=== PATIENT | female | born 1995 | race American Indian/Alaskan Native ===

== ENCOUNTER 2021-09-06 10:50 | Inpatient (IN) | payer OTHER ==
[2021-09-06] MEDS ORDERED: ACETAMINOPHEN 500 MG TAB PO STA (11:36)
[2021-09-06] MEDS ORDERED: SODIUM CHLORIDE 0.9% 1000 ML 1,000 ML IV ONE ×2 (11:36→15:51)
[2021-09-06 12:09] LABS: Hematocrit 37.1 % (30.3-42.9); Hemoglobin 12.2 gm/dl (10.1-14.3); Mean Corpuscular HGB Conc 33 % (30-34); Mean Corpuscular Volume 90 fl (79-97); Platelet Count 277 K/mm3 (140-440); Red Blood Count 4.14 M/mm3 (3.65-5.03); Red Cell Distribution Width 14.8 % (13.2-15.2)
[2021-09-06 12:23] LABS: Alanine Aminotransferase 37 units/L (7-56); Albumin 4.2 g/dL (3.9-5); Blood Urea Nitrogen 4 mg/dL (7-17); Calcium 9.5 mg/dL (8.4-10.2); Hemolysis Index 0
[2021-09-06 12:36] LABS: Bilirubin,Urine NEG (Negative); Blood,Urine LG (Negative); Color,Urine Amber (Yellow); Urobilinogen,Urine < 2.0 mg/dL (<2.0)
[2021-09-06 12:37] LABS: BUN/Creatinine Ratio 6
[2021-09-06 13:29] LABS: Anisocytosis 1+; Band Neutrophils # (Manual) 0.7 K/mm3; Basophils % (Manual) 0 % (0.0-1.8); Eosinophils % (Manual) 0 % (0.0-4.3); Large Platelets Few; Platelet Estimate Consistent w Auto; Total Cells Counted 100; Toxic Granulation 1+
--- NOTE | 2021-09-06 13:31 | Cat Scan Report ---
CT ABDOMEN AND PELVIS without CONTRAST HISTORY: lower abdominal pain 100ML 0F 300 OF OMNIPAQUE GIVEN COMPARISON: None TECHNIQUE: Routine abdominal and pelvic CT exam performed following intravenous contrast administrat ion.. All CT scans at this location are performed using CT dose reduction for ALARA by means of autom ated exposure control. FINDINGS: CT ABDOMEN: Lung Bases: No significant abnormality. Liver: No significant abnormality. Biliary: No significant abnormality. Spleen: No significant abnormality. Unenlarged. Pancreas: No significant abnormality. Adrenals: No significant abnormality. Kidneys: No significant abnormality. Lymphatics: No lymphadenopathy. Vasculature: No significant abnormality. Bowel/Peritoneum: No significant abnormality. No free air. No free fluid. CT PELVIC: : There is a large complex cystic structure in the left adnexal region, which appears to be partial ly tubular. This measures 12.6 x 9.9 cm in greatest axial dimension. There is resultant mass effect o n the uterus is rightward deviation of the uterus. Lymphatics: No lymphadenopathy. Osseous Structures: No aggressive appearing osseous lesions. Additional Findings: None IMPRESSION: 1. Large complex cystic structure in the left side of the pelvis appears to be at least partially tub ular in nature. This is probably a large hydrosalpinx/pyosalpinx. Complex left ovarian the lesion is possible but is felt to be less likely. Pelvic ultrasound might be helpful for further evaluation. Signer Name: Sean Parisi MD Signed: 09/06/2021 1:27 PM Workstation Name: [id number]
--- NOTE | 2021-09-06 15:13 | Emergency Department Report ---
ED General Adult HPI - General Chief complaint: Abdominal Pain Stated complaint: ABD PAIN Time Seen by Provider: 09/06/21 11:35 Source: patient Mode of arrival: Ambulatory Limitations: No Limitations - History of Present Illness Initial comments: 26-year-old -[place] female patient presents with complaints of lower abdominal pain x6 days. She states history of an ovarian cyst and is currently following with Dr. [facility]. She denies any vaginal bleeding, dysuria, hematuria, urinary frequency, dyspareunia, or fever. She does admit to chills and fatigue. No other past medical history per patient. She denies any known drug allergies. She rates her pain as a 6/10 in severity at current. Patient also denies any constipation or diarrhea, melena or hematochezia and admits to nausea without vomiting. Patient also states her menstrual cycle started yesterday Severity scale (0 -10): 5 - Related Data Home Medications Medication Instructions Recorded Confirmed Last Taken No Known Home Medications [No 09/06/21 09/06/21 Unknown Reported Home Medications] Allergies Allergy/AdvReac Type Severity Reaction Status Date / Time amoxicillin AdvReac Unknown Verified 09/06/21 11:04 ED Review of Systems ROS: Stated complaint: ABD PAIN Other details as noted in HPI Constitutional: chills, malaise, weakness. denies: diaphoresis, fever Respiratory: denies: cough, shortness of breath Cardiovascular: denies: chest pain Gastrointestinal: abdominal pain, nausea. denies: vomiting, diarrhea, constipation, hematemesis, melena, hematochezia Genitourinary: as per HPI Neurological: denies: headache Hematological/Lymphatic: denies: swollen glands ED Past Medical Hx - Medications Home Medications: Home Medications Medication Instructions Recorded Confirmed Last Taken Type No Known Home Medications [No 09/06/21 09/06/21 Unknown History Reported Home Medications] ED Physical Exam - General Limitations: No Limitations General appearance: alert, in no apparent distress - Head Head exam: Present: atraumatic, normocephalic - Eye Eye exam: Present: normal appearance. Absent: scleral icterus - Respiratory Respiratory exam: Present: normal lung sounds bilaterally. Absent: respiratory distress - Cardiovascular Cardiovascular Exam: Present: normal rhythm, tachycardia, normal heart sounds - GI/Abdominal GI/Abdominal exam: Present: soft, tenderness (Suprapubic tenderness, worse in the left lower abdomen), normal bowel sounds. Absent: distended, guarding, rebound, rigid - External exam: Present: normal external exam Speculum exam: Present: vaginal bleeding. Absent: erythema, vaginal discharge, cervical discharge Bi-manual exam: Absent: cervical motion tendernes - Back Exam Back exam: Present: full ROM. Absent: CVA tenderness (R), muscle spasm - Neurological Exam Neurological exam: Present: alert, oriented X3, normal gait ED Course Vital Signs 09/06/21 09/06/21 09/06/21 11:00 13:47 14:36 Temperature 100 F H 99.1 F Pulse Rate 125 H 102 H Respiratory 20 18 Rate Blood Pressure 126/77 Blood Pressure 135/83 116/71 [Left] O2 Sat by Pulse 100 100 Oximetry 09/06/21 09/06/21 09/06/21 15:27 15:28 17:43 Temperature 99.2 F 102.7 F H Pulse Rate 102 H 105 H Respiratory 20 18 Rate Blood Pressure Blood Pressure 119/79 118/73 [Left] O2 Sat by Pulse 100 100 99 Oximetry 09/06/21 09/06/21 09/06/21 19:21 19:57 20:39 Temperature 97.6 F Pulse Rate 92 H Respiratory 20 Rate Blood Pressure 114/74 101/48 107/68 Blood Pressure [Left] O2 Sat by Pulse 99 Oximetry 09/06/21 09/06/21 09/06/21 20:54 23:53 23:56 Temperature Pulse Rate Respiratory 20 Rate Blood Pressure Blood Pressure [Left] O2 Sat by Pulse 99 99 Oximetry 09/07/21 09/07/21 09/07/21 00:00 00:10 00:20 Temperature Pulse Rate Respiratory Rate Blood Pressure 155/79 155/79 155/79 Blood Pressure [Left] O2 Sat by Pulse 99 98 98 Oximetry 09/07/21 09/07/21 09/07/21 00:30 00:40 00:50 Temperature Pulse Rate Respiratory Rate Blood Pressure 155/79 155/79 155/79 Blood Pressure [Left] O2 Sat by Pulse 96 97 96 Oximetry ED Medical Decision Making - Lab Data Result diagrams: 09/07/21 08:50 09/07/21 08:50 - Radiology Data Radiology results: report reviewed CT ABDOMEN AND PELVIS without CONTRAST HISTORY: lower abdominal pain 100ML 0F 300 OF OMNIPAQUE GIVEN COMPARISON: None TECHNIQUE: Routine abdominal and pelvic CT exam performed following intravenous contrast administration.. All CT scans at this location are performed using CT dose reduction for ALARA by means of automated exposure control. FINDINGS: CT ABDOMEN: Lung Bases: No significant abnormality. Liver: No significant abnormality. Biliary: No significant abnormality. Spleen: No significant abnormality. Unenlarged. Pancreas: No significant abnormality. Adrenals: No significant abnormality. Kidneys: No significant abnormality. Lymphatics: No lymphadenopathy. Vasculature: No significant abnormality. Bowel/Peritoneum: No significant abnormality. No free air. No free fluid. CT PELVIC: : There is a large complex cystic structure in the left adnexal region, which appears to be partially tubular. This measures 12.6 x 9.9 cm in greatest axial dimension. There is resultant mass effect on the uterus is rightward deviation of the uterus. Lymphatics: No lymphadenopathy. Osseous Structures: No aggressive appearing osseous lesions. Additional Findings: None IMPRESSION: 1. Large complex cystic structure in the left side of the pelvis appears to be at least partially tubular in nature. This is probably a large hydrosalpinx/pyosalpinx. Complex left ovarian the lesion is possible but is felt to be less likely. Pelvic ultrasound might be helpful for further evaluation. Blood flow: Normal. Cyst or mass: A simple right adnexal cyst measures up to 2.8 cm. No other solid or cystic lesions. Left Ovary: The left ovary is not clearly visualized. A large hypoechoic structure containing generalized internal echoes is seen measuring 14.5 x 6.5 x 10.9 cm without internal vascularity. The finding correlates with the abnormality seen on the CT performed earlier today. Urinary Bladder: Normal. Free Fluid: None. Additional Findings: None. IMPRESSION: 1. Abnormal large left adnexal lesion as above is favored to represent hydrosalpinx versus pyosalpinx based on the findings of the CT performed earlier today. A left adnexal/ovarian neoplasm cannot be entirely excluded. AIRPLANE WOODWORKER consultation is recommended along with close clinical and imaging follow up. 2. Simple appearing nonspecific right adnexal cyst measuring up to 2.8 cm is most likely benign. No dedicated follow-up imaging is indicated at this time. 3. No other significant abnormality. - Medical Decision Making 26-year-old -[place] female patient presents with complaints of lower abdominal pain x6 days. She states history of an ovarian cyst and is currently following with Dr. [facility]. She denies any vaginal bleeding, dysuria, hematuria, urinary frequency, dyspareunia, or fever. She does admit to chills and fatigue. No other past medical history per patient. She denies any known drug allergies. She rates her pain as a 6/10 in severity at current. Patient also denies any constipation or diarrhea, melena or hematochezia and admits to nausea without vomiting. Suprapubic tenderness to palpation noted on exam worse in the left lower quadrant. CT abdomen shows fluid distention in the left tubo-ovarian area and recommends ultrasound. Ultrasound shows hydrosalpinx versus pyosalpinx and unable to rule out malignancy. White count is 11.8. Patient remains febrile and mildly tachycardic despite Tylenol and Toradol. She has received 2 L of n ormal saline. Discussed patient with Dr. Bryson who recommended Levaquin initially. After results of CT and ultrasound, Rocephin 1 g IV added along with doxycycline p.o. Discussed patient with Dr. Sifuentes who agrees with consultation with RF ENGINEER. Discussed patient with Dr. Bae, RF ENGINEER-recommends admission for observation and IV antibiotics. Patient is stable at this time and her pain is controlled. Critical care attestation.: If time is entered above; I have spent that time in minutes in the direct care of this critically ill patient, excluding procedure time. ED Disposition Clinical Impression: Sepsis, Pyosalpinx Disposition: 09 ADMITTED INPATIENT Is pt being admited?: Yes Condition: Stable
[2021-09-06] MEDS ORDERED: POTASSIUM CHLORIDE ER 20 MEQ TAB PO ONE (15:51)
--- NOTE | 2021-09-06 17:12 | Ultrasound Report ---
ULTRASOUND PELVIS INDICATION: Elbow pain. Abnormal CT of the abdomen and pelvis performed today demonstrating a probable left hydro nik-/pyosalpinx versus complex left adnexal lesion. TECHNIQUE: Transabdominal and Transvaginal. Duplex Color Doppler used: Yes. COMPARISON: CT abdomen and pelvis with contrast performed today. FINDINGS: Uterus: Present. Size: 8.7 x 4.8 x 5.1 cm. Endometrial complex: Normal measuring 0.9 cm. Mass lesions: None. Additional findings: None. Right Ovary: Size: 2.8 x 2.3 x 1.8 cm Blood flow: Normal. Cyst or mass: A simple right adnexal cyst measures up to 2.8 cm. No other solid or cystic lesions. Left Ovary: The left ovary is not clearly visualized. A large hypoechoic structure containing general ized internal echoes is seen measuring 14.5 x 6.5 x 10.9 cm without internal vascularity. The finding correlates with the abnormality seen on the CT performed earlier today. Urinary Bladder: Normal. Free Fluid: None. Additional Findings: None. IMPRESSION: 1. Abnormal large left adnexal lesion as above is favored to represent hydrosalpinx versus pyosalpinx based on the findings of the CT performed earlier today. A left adnexal/ovarian neoplasm cannot be e ntirely excluded. MANAGER PROCESS EXCELLENCE consultation is recommended along with close clinical and imaging follow up. 2. Simple appearing nonspecific right adnexal cyst measuring up to 2.8 cm is most likely benign. No d edicated follow-up imaging is indicated at this time. 3. No other significant abnormality. Signer Name: Ambrose Ruiz MD Signed: 09/06/2021 5:08 PM Workstation Name: [id number]
[2021-09-06] MEDS ORDERED: KETOROLAC 30 MG/1 ML INJ IV ONE (17:19)
[2021-09-06] MEDS ORDERED: ACETAMINOPHEN 325 MG TAB PO ONE (17:20)
[2021-09-06] MEDS ORDERED: cefTRIAXone/NS 1 GM/50 ML 1 GM/50 ML BAG IV ONE (17:46)
[2021-09-06] MEDS ORDERED: DOXYCYCLINE 100 MG CAP PO ONE (18:09)
[2021-09-06] MEDS ORDERED: NALOXONE 0.4 MG/1 ML INJ IV PRN (18:13)
[2021-09-06] MEDS ORDERED: MORPHINE 4 MG/1 ML INJ IV PRN (18:13)
[2021-09-06] MEDS: MORPHINE 2 MG/1 ML INJ IV PRN ×2 (20:27→23:53)
[2021-09-06] MEDS: metroNIDAZOLE/NS 500 MG/100 ML 500 MG/100 ML BAG IV SCH (21:41)
[2021-09-06] MEDS ORDERED: SODIUM CHLORIDE 0.9% 1000 ML 1,000 ML IV SCH (21:45)
[2021-09-06] MEDS: DOXYCYCLINE HYCLATE 100 MG in SODIUM CHLORIDE 0.9% 250ML 250 ML IV SCH (23:57)
[2021-09-07] MEDS ORDERED: ACETAMINOPHEN 500 MG TAB PO ONE (02:11)
--- NOTE | 2021-09-07 07:38 | History and Physical Report ---
History of Present Illness Date of examination: 09/07/21 Date of admission: 09/06/21 18:13 Chief complaint: fever, abdominal pain History of present illness: Pt is a 26 year old -British female nulligravida who presents with one week of decreased appetite, nausea, and abdominal pain. She did not report fever prior to presentation but was febrile to 102.7 during her evaluation in the Emergency Department. She had a CT abdomen/pelvis as well as a pelvic ultrasound which revealed a large complex cystic structure in adenexal region without internal echoes concerning for pyosalpinx vs hydrosalpinx. She has gynecologic care at [facility] with her last visit in Summer 2020. She reports a history of ovarian cysts and fibroids. 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 History: fibroids (per patient, but not identified on recent imaging ) Social history: no significant social history - Obstetrical History : 0 Medications and Allergies Allergies Allergy/AdvReac Type Severity Reaction Status Date / Time amoxicillin AdvReac Unknown Verified 09/06/21 11:04 Home Medications Medication Instructions Recorded Confirmed Last Taken Type No Known Home Medications [No 09/06/21 09/06/21 Unknown History Reported Home Medications] Active Meds: Active Medications Acetaminophen (Acetaminophen 325 Mg Tab) 650 mg PO Q4H PRN PRN Reason: Pain MILD(1-3)/Fever >100.5/GILES Doxycycline Hyclate 100 mg/ (Sodium Chloride) 250 mls @ 250 mls/hr IV Q12H AGUILAR; Protocol Last Admin: 09/06/21 23:57 Dose: 250 mls/hr Ceftriaxone Sodium (Rocephin/Ns 1 Gm/50 Ml) 1 gm in 50 mls @ 100 mls/hr IV Q24H AGUILAR; Protocol Metronidazole (Flagyl 500 Mg/100 Ml) 500 mg in 100 mls @ 100 mls/hr IV Q12H AGUILAR; Protocol Last Admin: 09/06/21 21:41 Dose: 100 mls/hr Sodium Chloride (Nacl 0.9% 1000 Ml) 1,000 mls @ 42 mls/hr IV DIRECT AGUILAR Last Admin: 09/06/21 21:39 Dose: 42 mls/hr Morphine Sulfate (Morphine 2 Mg/1 Ml Inj) 2 mg IV Q4H PRN PRN Reason: Pain, Moderate (4-6) Last Admin: 09/06/21 23:53 Dose: 2 mg Morphine Sulfate (Morphine 4 Mg/1 Ml Inj) 4 mg IV Q4H PRN PRN Reason: Pain , Severe (7-10) Naloxone HCl (Naloxone 0.4 Mg/1 Ml Inj) 0.1 mg IV Q2MIN PRN PRN Reason: Res Rate </= 8 or 02 SAT < 92% Ondansetron HCl (Ondansetron 4 Mg/2 Ml Inj) 4 mg IV Q8H PRN PRN Reason: Nausea And Vomiting Oxycodone/Acetaminophen (Oxycodone /Acetaminophen 5-325mg Tab) 1 tab PO Q6H PRN PRN Reason: Pain, Moderate (4-6) Sodium Chloride (Sodium Chloride 0.9% 10 Ml Flush Syringe) 10 ml IV BID AUGILAR Sodium Chloride (Sodium Chloride 0.9% 10 Ml Flush Syringe) 10 ml IV PRN PRN PRN Reason: LINE FLUSH Review of Systems All systems: negative Eyes: deferred Gastrointestinal: nausea, vomiting (x 2 episodes, yesterday ) - Vital Signs Vital signs: Vital Signs Temp Pulse Resp BP Pulse Ox 100 F H 125 H 20 135/83 100 09/06/21 11:00 09/06/21 11:00 09/06/21 11:00 09/06/21 11:00 09/06/21 11:00 Temp Pulse Resp BP Pulse Ox 99.3 F 101 H 18 91/49 98 09/07/21 05:00 09/07/21 05:00 09/07/21 05:00 09/07/21 05:00 09/07/21 05:00 - Physical Exam Breasts: Positive: deferred Abdomen: Positive: soft (mild ), distention, tenderness. Negative: guarding Extremities: Positive: normal Results Result Diagrams: 09/06/21 11:42 09/06/21 11:42 Abnormal lab results 09/06/21 09/06/21 09/06/21 Range/Units 11:42 11:42 11:42 WBC 11.8 H (4.5-11.0) K/mm3 Seg Neuts % (Manual) 76.0 H (40.0-70.0) % Lymphocytes % (Manual) 9.0 L (13.4-35.0) % Monocytes % (Manual) 9.0 H (0.0-7.3) % Seg Neutrophils # Man 9.0 H (1.8-7.7) K/mm3 Lymphocytes # (Manual) 1.1 L (1.2-5.4) K/mm3 Monocytes # (Manual) 1.1 H (0.0-0.8) K/mm3 Sodium 133 L (137-145) mmol/L Potassium 3.4 L (3.6-5.0) mmol/L Chloride 92.0 L (98-107) mmol/L BUN 4 L (7-17) mg/dL Glucose 131 H (65-100) mg/dL Lactic Acid 2.80 H* (0.7-2.0) mmol/L Total Protein 8.5 H (6.3-8.2) g/dL 09/06/21 Range/Units 16:38 WBC (4.5-11.0) K/mm3 Seg Neuts % (Manual) (40.0-70.0) % Lymphocytes % (Manual) (13.4-35.0) % Monocytes % (Manual) (0.0-7.3) % Seg Neutrophils # Man (1.8-7.7) K/mm3 Lymphocytes # (Manual) (1.2-5.4) K/mm3 Monocytes # (Manual) (0.0-0.8) K/mm3 Sodium (137-145) mmol/L Potassium (3.6-5.0) mmol/L Chloride (98-107) mmol/L BUN (7-17) mg/dL Glucose (65-100) mg/dL Lactic Acid 3.70 H* (0.7-2.0) mmol/L Total Protein (6.3-8.2) g/dL All other labs normal. Assessment and Plan A: Fever and complex left adnexal mass concerning for tubo-ovarian abscess Electrolyte abnormalities P: Admit to gynecologic service IV Ceftriaxone, Flagyl and Doxycycline Interventional Radiology consult for drainage- contact made with Dr Joe this morning (09/07/21) Closely monitor clinical status Repeat CBC, BMP Follow up blood cultures
--- NOTE | 2021-09-07 09:25 | Event Note ---
Date: 09/07/21 Discussed the plan of care with patient. Patient is currently awaiting on evaluation from IR for percutaneous drainage of TOA. Receiving IV antibiotics.
[2021-09-07 09:56] LABS: Basophils % (Auto) 0.1 % (0.0-1.8); Eosinophils % (Auto) 0.1 % (0.0-4.3); Hematocrit 35.1 % (30.3-42.9); Hemoglobin 11.1 gm/dl (10.1-14.3); Lymphocytes # (Auto) 0.8 K/mm3 (1.2-5.4); Lymphocytes % (Auto) 6.9 % (13.4-35.0); Mean Corpuscular HGB Conc 32 % (30-34); Mean Corpuscular Volume 90 fl (79-97); Monocytes # (Auto) 1.5 K/mm3 (0.0-0.8); Monocytes % (Auto) 12.6 % (0.0-7.3); Platelet Count 242 K/mm3 (140-440); Red Cell Distribution Width 14.9 % (13.2-15.2)
[2021-09-07 10:02] LABS: Blood Urea Nitrogen 3 mg/dL (7-17); Calcium 8.7 mg/dL (8.4-10.2); Hemolysis Index 1
[2021-09-07 10:03] LABS: BUN/Creatinine Ratio 4
[2021-09-07] MEDS: MORPHINE 2 MG/1 ML INJ IV PRN (10:36)
[2021-09-07] MEDS: metroNIDAZOLE/NS 500 MG/100 ML 500 MG/100 ML BAG IV SCH ×2 (10:37→23:12)
[2021-09-07] MEDS: D5W/LACTATED RINGERS 1,000 ML IV SCH ×2 (10:45→15:42)
[2021-09-07] MEDS: DOXYCYCLINE HYCLATE 100 MG in SODIUM CHLORIDE 0.9% 250ML 250 ML IV SCH (11:54)
--- NOTE | 2021-09-07 13:33 | Event Note ---
Date: 09/07/[address] Bae. We will plan on a percutaneous drainage of TOA tomorrow secondary to scheduling. CT scan reviewed and TOA is amenable to drainage.
[2021-09-07] MEDS: ACETAMINOPHEN 325 MG TAB PO PRN (15:28)
[2021-09-07] MEDS: cefTRIAXone/NS 1 GM/50 ML 1 GM/50 ML BAG IV SCH (15:35)
[2021-09-07] MEDS: oxyCODONE /ACETAMINOPHEN 5-325MG TAB PO PRN (18:41)
[2021-09-07] MEDS: ONDANSETRON 4 MG/2 ML INJ IV PRN (23:17)
[2021-09-08] MEDS: DOXYCYCLINE HYCLATE 100 MG in SODIUM CHLORIDE 0.9% 250ML 250 ML IV SCH ×2 (01:48→22:00)
[2021-09-08] MEDS: ACETAMINOPHEN 325 MG TAB PO PRN (08:00)
[2021-09-08] MEDS ORDERED: fentaNYL 100 MCG/2 ML INJ ONE (11:01)
[2021-09-08] MEDS ORDERED: MIDAZOLAM 2 MG/2 ML INJ ONE (11:02)
[2021-09-08] MEDS ORDERED: MIDAZOLAM 2 MG/2 ML INJ IV ONE (11:05)
[2021-09-08] MEDS ORDERED: fentaNYL 100 MCG/2 ML INJ IV ONE (12:05)
--- NOTE | 2021-09-08 12:17 | Consultation ---
History of Present Illness - Reason for Consult Consult date: 09/08/21 Tubo-ovarian abscess - History of Present Illness Patient with a history of a 1 week of worsening abdominal pain and fullness who on CT scan on admission was noted to have a large tubo-ovarian abscess. Past History Social history: no significant social history Medications and Allergies Allergies Allergy/AdvReac Type Severity Reaction Status Date / Time amoxicillin AdvReac Unknown Verified 09/06/21 11:04 Home Medications Medication Instructions Recorded Confirmed Last Taken Type No Known Home Medications [No 09/06/21 09/06/21 Unknown History Reported Home Medications] Active Meds: Active Medications Acetaminophen (Acetaminophen 325 Mg Tab) 650 mg PO Q4H PRN PRN Reason: Pain MILD(1-3)/Fever >100.5/GILES Last Admin: 09/08/21 08:00 Dose: 650 mg Doxycycline Hyclate 100 mg/ (Sodium Chloride) 250 mls @ 250 mls/hr IV Q12H AGUILAR; Protocol Last Admin: 09/08/21 01:48 Dose: 250 mls/hr Ceftriaxone Sodium (Rocephin/Ns 1 Gm/50 Ml) 1 gm in 50 mls @ 100 mls/hr IV Q24H AGUILAR; Protocol Last Admin: 09/07/21 15:35 Dose: 100 mls/hr Metronidazole (Flagyl 500 Mg/100 Ml) 500 mg in 100 mls @ 100 mls/hr IV Q12H AGUILAR; Protocol Last Admin: 09/07/21 23:12 Dose: 100 mls/hr Dextrose/Lactated Ringer's (D5lr) 1,000 mls @ 125 mls/hr IV DIRECT AGUILAR Last Admin: 09/07/21 15:42 Dose: 125 mls/hr Morphine Sulfate (Morphine 2 Mg/1 Ml Inj) 2 mg IV Q4H PRN PRN Reason: Pain, Moderate (4-6) Last Admin: 09/07/21 10:36 Dose: 2 mg Morphine Sulfate (Morphine 4 Mg/1 Ml Inj) 4 mg IV Q4H PRN PRN Reason: Pain , Severe (7-10) Naloxone HCl (Naloxone 0.4 Mg/1 Ml Inj) 0.1 mg IV Q2MIN PRN PRN Reason: Res Rate </= 8 or 02 SAT < 92% Ondansetron HCl (Ondansetron 4 Mg/2 Ml Inj) 4 mg IV Q8H PRN PRN Reason: Nausea And Vomiting Last Admin: 09/07/21 23:17 Dose: 4 mg Oxycodone/Acetaminophen (Oxycodone /Acetaminophen 5-325mg Tab) 1 tab PO Q6H PRN PRN Reason: Pain, Moderate (4-6) Last Admin: 09/07/21 18:41 Dose: 1 tab Sodium Chloride (Sodium Chloride 0.9% 10 Ml Flush Syringe) 10 ml IV BID AGUILAR Sodium Chloride (Sodium Chloride 0.9% 10 Ml Flush Syringe) 10 ml IV PRN PRN PRN Reason: LINE FLUSH Review of Systems All systems: negative Exam - Constitutional Vitals: Temp Pulse Resp BP Pulse Ox 101.0 F H 92 H 28 H 115/66 100 09/08/21 09:25 09/08/21 12:11 09/08/21 12:11 09/08/21 12:11 09/08/21 12:11 General appearance: Present: no acute distress - EENT Eyes: Present: EOM intact ENT: hearing intact - Neck Neck: Present: supple, normal ROM - Respiratory Respiratory effort: normal - Cardiovascular Rhythm: regular - Extremities Extremities: no ischemia - Abdominal General gastrointestinal: Present: soft, distended Female genitourinary: Present: deferred - Rectal Rectal Exam: deferred - Psychiatric Psychiatric: appropriate mood/affect, cooperative Results - Labs CBC & Chem 7: 09/07/21 08:50 09/07/21 08:50 - Imaging and Cardiology CT scan - abdomen: image reviewed CT scan - pelvis: image reviewed Assessment and Plan Patient will be brought to the CT suite today for planned placement of drainage catheter. Following placement of drainage catheter, the drainage catheter may be removed once her infection is under control and drainage has decreased. Patient may be discharged home with a drainage catheter in place.
--- NOTE | 2021-09-08 12:20 | Operative Report ---
Operative Report Operative Report: Exam: CT-guided placement of 8 Nauruan drainage catheter in tubo-ovarian abscess Clinical indication: Symptomatic tubo-ovarian abscess with sepsis Date: 09/08/2021 Procedure: Following an explanation of the risk, benefits and alternatives; written informed consent was obtained. The patient was brought to the CT suite and placed in supine position on the gantry. Initial senior wind energy consultant images of the abdomen were obtained and a large fluid collection that extended to the anterior abdominal wall is identified. This causes inferior displacement of the bladder. The patient's anterior abdominal wall was prepped and draped in the usual sterile fashion. 1% lidocaine was used for anesthesia. Under intermittent CT guidance, a 15 cm 18-gauge trocar needle was advanced to the central aspect of the fluid collection. There was prompt return of dark purulent fluid. A 0.035 guidewire was advanced and coiled within the fluid collection and CT images were obtained to document this. Following serial dilation over the guidewire, an 8 Nauruan drainage catheter was advanced over the guidewire and the guidewire removed. Appropriate positioning was confirmed with CT. A total of 700 mL of dark purulent fluid was aspirated. A sample was sent for laboratory analysis. The catheter was then securely fastened to the skin surface using 2-0 silk suture and placed to RICHARD bulb drainage. A sterile dressing was applied. The patient tolerated the procedure well. There were no immediate post procedure complications. Conscious sedation was performed under the guidance of radiologic nursing. Continuous cardiopulmonary monitoring was utilized. Impression: 1) CT-guided placement of 8 Nauruan drainage catheter in tubo-ovarian abscess with 700 mL of dark purulent fluid aspirated. Sample sent for laboratory analysis.
[2021-09-08] MEDS: D5W/LACTATED RINGERS 1,000 ML IV SCH (13:23)
[2021-09-08] MEDS: metroNIDAZOLE/NS 500 MG/100 ML 500 MG/100 ML BAG IV SCH (13:46)
[2021-09-08] MEDS: oxyCODONE /ACETAMINOPHEN 5-325MG TAB PO PRN ×2 (15:59→21:58)
[2021-09-08] MEDS: cefTRIAXone/NS 1 GM/50 ML 1 GM/50 ML BAG IV SCH (16:01)
--- NOTE | 2021-09-08 17:37 | Event Note ---
Date: 09/08/21 Pt sitting up in chair. States she feels much better. Pain is tolerable at this time, reports that Percocet was effective. RICHARD drain intact with serosanguinous drainage noted. Will continue to monitor.
[2021-09-09] MEDS: metroNIDAZOLE/NS 500 MG/100 ML 500 MG/100 ML BAG IV SCH ×2 (02:24→14:04)
[2021-09-09] MEDS: oxyCODONE /ACETAMINOPHEN 5-325MG TAB PO PRN ×3 (04:51→16:16)
--- NOTE | 2021-09-09 08:59 | Progress Note ---
Assessment and Plan - Patient Problems (1) Tubo-ovarian abscess Current Visit: Yes Status: Acute Plan to address problem: Patient is demonstrating clinical improvement Consider discharge home tomorrow Patient will need follow-up on Sunday for removal of RICHARD drain Subjective - Subjective Date of service: 09/09/21 Interval history: Patient is status post percutaneous drainage of a tubo-ovarian abscess with drainage of purulent material. The patient reports improvement of symptoms and she has been afebrile overnight. She denies any nausea vomiting. Her pain is better controlled. Patient reports: voiding normally, pain well controlled Objective - Vital Signs Latest vital signs: Vital Signs Temp Pulse Pulse Pulse Pulse Pulse Resp 09/09/21 07:02 98.1 F 84 20 09/09/21 05:38 98.4 F 90 18 09/09/21 04:51 18 09/09/21 00:53 98.0 F 94 H 16 09/08/21 22:58 18 09/08/21 22:00 80 18 09/08/21 21:58 18 09/08/21 21:55 09/08/21 21:13 98.0 F 99 H 16 09/08/21 16:20 99.6 F 134 H 20 09/08/21 15:59 20 09/08/21 13:27 22 09/08/21 12:59 99.6 F 110 H 20 09/08/21 12:40 99 H 09/08/21 12:27 100 H 09/08/21 12:11 92 H 09/08/21 12:05 96 H 09/08/21 11:59 98 H 09/08/21 11:54 99 H 09/08/21 11:49 96 H 09/08/21 11:44 99 H 09/08/21 11:42 30 H 09/08/21 11:35 95 H 09/08/21 09:25 101.0 F H 108 H Resp Resp Resp Resp BP BP BP 09/09/21 07:02 111/70 09/09/21 05:38 115/70 09/09/21 04:51 09/09/21 00:53 108/68 09/08/21 22:58 09/08/21 22:00 09/08/21 21:58 09/08/21 21:55 18 09/08/21 21:13 111/69 09/08/21 16:20 99/58 09/08/21 15:59 09/08/21 13:27 09/08/21 12:59 124/77 09/08/21 12:40 31 H 09/08/21 12:27 28 H 09/08/21 12:11 28 H 09/08/21 12:05 29 H 115/66 09/08/21 11:59 31 H 118/68 09/08/21 11:54 30 H 107/62 09/08/21 11:49 32 H 122/68 09/08/21 11:44 30 H 113/65 09/08/21 11:42 09/08/21 11:35 27 H 09/08/21 09:25 BP BP Pulse Ox Pulse Ox Pulse Ox Pulse Ox 09/09/21 07:02 97 09/09/21 05:38 98 09/09/21 04:51 09/09/21 00:53 98 09/08/21 22:58 09/08/21 22:00 99 09/08/21 21:58 09/08/21 21:55 09/08/21 21:13 99 09/08/21 16:20 09/08/21 15:59 09/08/21 13:27 09/08/21 12:59 98 09/08/21 12:40 122/71 99 97 09/08/21 12:27 121/71 100 99 09/08/21 12:11 115/66 100 09/08/21 12:05 100 09/08/21 11:59 100 09/08/21 11:54 100 09/08/21 11:49 99 09/08/21 11:44 99 09/08/21 11:42 09/08/21 11:35 121/77 98 09/08/21 09:25 96 Intake and Output 09/08/21 09/09/21 09/09/21 22:59 06:59 14:59 Intake Total 880 480 Output Total 80 Balance 800 480 Intake: Oral 880 Intake, Free Water 480 Output: Drainage 80 Abdomen 80 Other: Total, Intake Amount 360 Total, Output Amount 20 Voiding Method Toilet # Voids Void 1 1 - Exam Abdomen: Present: normal appearance, soft
[2021-09-09] MEDS: DOXYCYCLINE HYCLATE 100 MG in SODIUM CHLORIDE 0.9% 250ML 250 ML IV SCH ×2 (09:44→23:18)
--- NOTE | 2021-09-09 11:08 | Cat Scan Report ---
PLEASE SEE OPERATIVE REPORT ON 09/08/21 @1217 MTDD
[2021-09-09] MEDS: ONDANSETRON 4 MG/2 ML INJ IV PRN (16:17)
[2021-09-09] MEDS: cefTRIAXone/NS 1 GM/50 ML 1 GM/50 ML BAG IV SCH (18:25)
[2021-09-10] MEDS: metroNIDAZOLE/NS 500 MG/100 ML 500 MG/100 ML BAG IV SCH ×2 (03:14→14:54)
[2021-09-10] MEDS: ONDANSETRON 4 MG/2 ML INJ IV PRN ×2 (03:14→11:10)
[2021-09-10] MEDS: oxyCODONE /ACETAMINOPHEN 5-325MG TAB PO PRN ×2 (11:11→21:57)
[2021-09-10] MEDS: D5W/LACTATED RINGERS 1,000 ML IV SCH (11:14)
[2021-09-10] MEDS: DOXYCYCLINE HYCLATE 100 MG in SODIUM CHLORIDE 0.9% 250ML 250 ML IV SCH (12:30)
--- NOTE | 2021-09-10 17:12 | Progress Note ---
Assessment and Plan Postop day 2 status post percutaneous drainage of the ovarian abscess. Patient was improving on yesterday, however she seems to be doing somewhat worse today with the new development of vomiting and diarrhea. RICHARD drain shows only minimal output. We will recheck CBC for change in blood work. In addition, patient's temperature tends to be trending upward, as well as her heart rate. patient's IV was restarted by nursing staff. We will also collect urinalysis to check for new onset infection. Subjective - Subjective Date of service: 09/10/21 Principal diagnosis: Tubo-ovarian abscess, status post percutaneous drainage of same Interval history: Patient reports that she began vomiting last night and has continued to do so intermittently throughout the day regardless of her intake. Patient reports vomiting only water as well as food products. Patient is concerned about continuing to eat as she is concerned about continuing to vomit. She is also had several episodes of diarrhea. The vomiting seems to be concurrent with urinating and or defecating. Patient reports: appetite normal, voiding normally, nauseated, other (Vomiting and diarrhea) Objective - Vital Signs Latest vital signs: Vital Signs Temp Pulse Resp BP Pulse Ox 09/10/21 16:30 98.2 F 92 H 20 116/75 100 09/10/21 11:11 20 09/10/21 08:30 20 98 09/10/21 04:24 99.8 F H 108 H 20 107/62 98 09/09/21 23:29 98.6 F 100 H 20 116/72 98 09/09/21 19:47 98.6 F 98 H 18 114/70 97 09/09/21 19:30 99 Intake and Output 09/10/21 09/10/21 09/10/21 06:59 14:59 22:59 Intake Total 350 Output Total 405 4 Balance -55 -4 Intake: IV 350 Doxycycline Hyclate 100 250 mg In NaCl 0.9% 250Ml 250 ml @ 250 mls/hr IV Q12H AGUILAR Rx#:[id number] FLAGYL 500 MG/100 ML 500 100 mg In 100 ml @ 100 mls/hr IV Q12H AGUILAR Rx#: [id number] Output: Drainage 5 2 Abdomen 5 2 Emesis 400 2 Other: Total, Output Amount 405 1 Voiding Method Toilet # Voids Void 1 1 # Bowel Movements 1 1 - Exam Breasts: Present: deferred Cardiovascular: Present: Other (Mildly tachycardic) Lungs: Present: Clear to auscultation Abdomen: Present: normal appearance, soft, normal bowel sounds Extremities: Present: normal
[2021-09-10 17:24] LABS: Hematocrit 31.9 % (30.3-42.9); Hemoglobin 10.5 gm/dl (10.1-14.3); Mean Corpuscular HGB Conc 33 % (30-34); Mean Corpuscular Volume 89 fl (79-97); Platelet Count 358 K/mm3 (140-440); Red Cell Distribution Width 15.6 % (13.2-15.2)
[2021-09-10 17:31] LABS: Basophils % (Auto) 0.1 % (0.0-1.8); Eosinophils % (Auto) 0.3 % (0.0-4.3); Lymphocytes % (Auto) 9.4 % (13.4-35.0); Monocytes # (Auto) 1.3 K/mm3 (0.0-0.8); Monocytes % (Auto) 12.2 % (0.0-7.3)
[2021-09-10] MEDS: cefTRIAXone/NS 1 GM/50 ML 1 GM/50 ML BAG IV SCH (18:20)
[2021-09-10 20:20] LABS: Bilirubin,Urine NEG (Negative); Blood,Urine SM (Negative); Color,Urine Yellow (Yellow); Mucus,Urine FEW /HPF; Urobilinogen,Urine < 2.0 mg/dL (<2.0); WBC,Urine < 1.0 /HPF (0.0-6.0)
[2021-09-11] MEDS: DOXYCYCLINE HYCLATE 100 MG in SODIUM CHLORIDE 0.9% 250ML 250 ML IV SCH ×2 (00:29→13:03)
[2021-09-11] MEDS: metroNIDAZOLE/NS 500 MG/100 ML 500 MG/100 ML BAG IV SCH ×2 (02:44→14:13)
[2021-09-11] MEDS: oxyCODONE /ACETAMINOPHEN 5-325MG TAB PO PRN ×3 (09:12→23:27)
[2021-09-11] MEDS: ONDANSETRON 4 MG/2 ML INJ IV PRN ×2 (15:28→23:27)
[2021-09-11] MEDS: MORPHINE 2 MG/1 ML INJ IV PRN (16:15)
[2021-09-11] MEDS: cefTRIAXone/NS 1 GM/50 ML 1 GM/50 ML BAG IV SCH (18:30)
--- NOTE | 2021-09-11 23:49 | Progress Note ---
Subjective - Subjective Date of service: 09/11/21 Principal diagnosis: Tubo-ovarian abscess, status post percutaneous drainage of same Interval history: Patient reports that she began vomiting last night and has continued to do so intermittently throughout the day regardless of her intake. Patient reports vomiting only water as well as food products. Patient is concerned about continuing to eat as she is concerned about continuing to vomit. She is also had several episodes of diarrhea. The vomiting seems to be concurrent with urinating and or defecating. Patient reports: appetite normal, voiding normally, pain well controlled, ambul ating normally, nauseated, other (patient continues to have episodes of vomiting) Objective - Vital Signs Latest vital signs: Vital Signs Temp Pulse Resp BP BP Pulse Ox 09/11/21 23:27 12 09/11/21 20:40 98 09/11/21 20:37 99.1 F 81 20 133/74 97 09/11/21 16:09 98.9 F 82 18 127/83 98 09/11/21 12:10 98.0 F 98 H 18 123/66 96 09/11/21 08:10 95 09/11/21 07:31 99.0 F 98 H 18 104/72 95 09/11/21 04:35 98.2 F 98 H 20 101/53 99 Intake and Output 09/11/21 09/11/21 09/12/21 14:59 22:59 06:59 Intake Total 820 360 Balance 820 360 Intake: Oral 240 Intake, Free Water 580 360 Other: Total, Intake Amount 240 # Voids Void 1 1 - Exam Breasts: Present: deferred Lungs: Present: Clear to auscultation, Normal air movement
--- NOTE | 2021-09-12 08:16 | Progress Note ---
Assessment and Plan A: HD #6 admitted for tuboovarian abscess s/p percutaneous drainage on 09/08/21; previously on ceftriaxone, doxycycline and metronidazole but noted to have nausea vomiting and diarrhea with metronidazole P: Metronidazole and Doxcycline discontinued. Trial of cerftriaxone per abscess culture sensitivities. Monitor clinical status. Consider GI consult if nausea/vomiting/diarrhea return. Consider removal of Richard drain. Closely monitor clinical status. Subjective - Subjective Date of service: 09/12/21 Principal diagnosis: Tubo-ovarian abscess, status post percutaneous drainage of same Interval history: Overnight, since her antibiotics were discontinued, pt has felt well and has had no episodes of nausea or vomiting. She and her nurse yesterday Corazon suspect that the Metronidazole may be the medication causing her nausea and vomiting. She is able to void and ambulate. She has minimal pain. Minimal output from her RICHARD drain. Patient reports: appetite normal, voiding normally, pain well controlled, ambulating normally Objective - Vital Signs Latest vital signs: Vital Signs Temp Pulse Resp BP BP Pulse Ox 09/12/21 04:44 98.3 F 101 H 20 138/56 100 09/12/21 00:19 98.8 F 83 18 127/69 95 09/11/21 23:27 12 09/11/21 20:40 98 09/11/21 20:37 99.1 F 81 20 133/74 97 09/11/21 16:09 98.9 F 82 18 127/83 98 09/11/21 12:10 98.0 F 98 H 18 123/66 96 09/11/21 08:10 95 Intake and Output 09/11/21 09/12/21 09/12/21 22:59 06:59 14:59 Intake Total 360 120 Output Total 0 Balance 360 120 Intake: Oral 120 Intake, Free Water 360 Output: Drainage 0 Abdomen 0 Other: Total, Intake Amount 120 Total, Output Amount 0 # Voids Void 1 1 - Exam Breasts: Present: deferred Abdomen: Present: soft, other (RICHARD drain in place, bulb empty at this time ). Absent: distention Extremities: Present: normal
[2021-09-12 08:30] LABS: Basophils % (Auto) 0.2 % (0.0-1.8); Eosinophils % (Auto) 0.5 % (0.0-4.3); Hematocrit 33.9 % (30.3-42.9); Hemoglobin 11.2 gm/dl (10.1-14.3); Lymphocytes # (Auto) 0.9 K/mm3 (1.2-5.4); Mean Corpuscular HGB Conc 33 % (30-34); Mean Corpuscular Volume 88 fl (79-97); Monocytes % (Auto) 11.7 % (0.0-7.3); Platelet Count 418 K/mm3 (140-440); Red Blood Count 3.85 M/mm3 (3.65-5.03); Red Cell Distribution Width 15.5 % (13.2-15.2)
[2021-09-12 08:48] LABS: Blood Urea Nitrogen 3 mg/dL (7-17); Calcium 7.8 mg/dL (8.4-10.2); Hemolysis Index 6
[2021-09-12 09:13] LABS: BUN/Creatinine Ratio 6
[2021-09-12] MEDS ORDERED: POTASSIUM CHLORIDE ER 20 MEQ TAB PO SCH (10:00)
--- NOTE | 2021-09-12 10:11 | Gastroenterology Consultation ---
History of Present Illness - Reason for Consult Consult date: 09/12/21 n/v, diarrhea Requesting physician: CATHERINE HOWELL - History of Present Illness The patient is a 26 yo aaf who presented with 1 week of pelvic pain, found to have tubo-ovarian abscess s/p percutaneous drainage. During hospitalization, she developed sx's of n/v/diarrhea while on flagyl, dicyclomine and rocephin. flagyl and dicyclomine has since been discontinued and now on rocephin based on cx results. she reports improvement in her n/v/diarrhea today. no bm's today. tolerated po this morning without n/v. Past History Past Medical History: No medical history Past Surgical History: Other (percutaneous drainage of tuboovarian abscess) Social history: no significant social history Medications and Allergies Allergies Allergy/AdvReac Type Severity Reaction Status Date / Time amoxicillin AdvReac Unknown Verified 09/06/21 11:04 Home Medications Medication Instructions Recorded Confirmed Last Taken Type Doxycycline Hyclate 100 mg PO BID #14 09/09/21 Unknown Rx Ibuprofen [Motrin] 800 mg PO Q8HR PRN #30 tablet 09/09/21 Unknown Rx oxyCODONE /ACETAMINOPHEN [Percocet 1 tab PO Q6HR PRN #20 tablet 09/09/21 Unkno wn Rx 5/325] Active Meds: Active Medications Acetaminophen (Acetaminophen 325 Mg Tab) 650 mg PO Q4H PRN PRN Reason: Pain MILD(1-3)/Fever >100.5/GILES Last Admin: 09/08/21 08:00 Dose: 650 mg Dextrose/Lactated Ringer's (D5lr) 1,000 mls @ 125 mls/hr IV DIRECT AGUILAR Last Admin: 09/10/21 11:14 Dose: 125 mls/hr Ceftriaxone Sodium (Rocephin/Ns 1 Gm/50 Ml) 1 gm in 50 mls @ 100 mls/hr IV Q24H AGUILAR; Protocol Morphine Sulfate (Morphine 2 Mg/1 Ml Inj) 2 mg IV Q4H PRN PRN Reason: Pain, Moderate (4-6) Last Admin: 09/11/21 16:15 Dose: 2 mg Morphine Sulfate (Morphine 4 Mg/1 Ml Inj) 4 mg IV Q4H PRN PRN Reason: Pain , Severe (7-10) Last Admin: 09/08/21 13:27 Dose: 4 mg Naloxone HCl (Naloxone 0.4 Mg/1 Ml Inj) 0.1 mg IV Q2MIN PRN PRN Reason: Res Rate </= 8 or 02 SAT < 92% Ondansetron HCl (Ondansetron 4 Mg/2 Ml Inj) 4 mg IV Q8H PRN PRN Reason: Nausea And Vomiting Last Admin: 09/11/21 23:27 Dose: 4 mg Oxycodone/Acetaminophen (Oxycodone /Acetaminophen 5-325mg Tab) 2 tab PO Q6H PRN PRN Reason: Pain, Moderate (4-6) Last Admin: 09/11/21 23:27 Dose: 2 tab Potassium Chloride (Potassium Chloride Er 20 Meq Tab) 40 meq PO ONCE@1000 AGUILAR Stop: 09/12/21 14:00 Sodium Chloride (Sodium Chloride 0.9% 10 Ml Flush Syringe) 10 ml IV BID [facility] Last Admin: 09/08/21 22:01 Dose: 10 ml Sodium Chloride (Sodium Chloride 0.9% 10 Ml Flush Syringe) 10 ml IV PRN PRN PRN Reason: LINE FLUSH Reviewed/updated patient's home and current medications. Review of Systems - Review of Systems All systems: negative (per HPI) Exam - Constitutional Vital Signs: Temp Pulse Resp BP Pulse Ox 98.7 F 79 20 144/91 96 09/12/21 08:05 09/12/21 08:05 09/12/21 08:05 09/12/21 08:05 09/12/21 08:05 General appearance: no acute distress - EENT Eyes: PERRL, EOM intact - Respiratory Respiratory effort: normal Respiratory: bilateral: CTA - Cardiovascular Rhythm: regular Heart Sounds: Present: S1 & S2 - Gastrointestinal General gastrointestinal: Present: soft, non-distended - Neurologic Neurological: alert and oriented x3 - Psychiatric Psychiatric: appropriate mood/affect - Labs CBC & Chem 7: 09/12/21 08:19 09/12/21 08:19 Lab Results: Laboratory Results - last 24 hr 09/12/21 09/12/21 08:19 08:19 WBC 8.8 RBC 3.85 Hgb 11.2 Hct 33.9 MCV 88 MCH 29 MCHC 33 RDW 15.5 H Plt Count 418 Lymph % (Auto) 10.0 L [place] % (Auto) 11.7 H Eos % (Auto) 0.5 Baso % (Auto) 0.2 Lymph # (Auto) 0.9 L [place] # (Auto) 1.0 H Eos # (Auto) 0.0 Baso # (Auto) 0.0 Seg Neutrophils % 77.6 H Seg Neutrophils # 6.8 Sodium 138 Potassium 2.9 L* Chloride 96.8 L Carbon Dioxide 27 Anion Gap 17 BUN 3 L Creatinine 0.5 L Estimated GFR > 60 BUN/Creatinine Ratio 6 Glucose 101 H Calcium 7.8 L Assessment and Plan 1. Nausea/vomiting - resolved, suspect due to abx (flagyl). tolerated po this morning. cont diet as tolerated and supportive care per primary 2. Diarrhea - resolved as well, no bm's today -suspect abx related. if sx's remain improved, no further inpatient gi work-up needed. will sign off, please call as needed or with questions.
[2021-09-12] MEDS: cefTRIAXone/NS 1 GM/50 ML 1 GM/50 ML BAG IV SCH (10:15)
--- NOTE | 2021-09-12 13:39 | Consultation ---
History of Present Illness - Reason for Consult Consult date: 09/12/21 TOA s/p drainage Requesting physician: CATHERINE OHWELL - History of Present Illness The patient is a 26-year-old female with no significant medical history was admitted with nausea, vomiting, abdominal pain in association with fever. CT abdomen pelvis revealed a large complex cystic structure concerning for pyosalpinx versus hydrosalpinx. She was started on empiric antibiotics, interventional radiology performed a drain placement, about 700 cc of dark purulent fluid was aspirated. Fevers have resolved. Had mild leukocytosis which is also improved. More recently, patient started having nausea and vomiting suspected due to antibiotics. She was getting ceftriaxone, Flagyl, doxycycline. Patient thinks it was more related to Flagyl. That has been stopped and she is feeling better today. Still having some abdominal pain but overall she feels 80% better. Sexually active, in a monogamous relationship. Review of Systems: General: no fevers,chills or rigors HEENT: no new visual disturbance Respiratory: No cough, sputum, hemoptysis or shortness of breath Cardiovascular: No chest pain, syncope Gastrointestinal: Nausea, vomiting Genitourinary: No dysuria or hematuria Musculoskeletal: No new or worsening neck pain or back pain Neurologic: No headaches, seizures Hematologic: No easy bruising or bleeding Endocrine: No night sweats or acute weight loss Skin: negative for rash, jaundice Psychiatric: No suicidal or homicidal ideation Past History Past Medical History: No medical history Past Surgical History: Other (percutaneous drainage of tuboovarian abscess) Social history: no significant social history Medications and Allergies Allergies Allergy/AdvReac Type Severity Reaction Status Date / Time amoxicillin AdvReac Unknown Verified 09/06/21 11:04 Home Medications Medication Instructions Recorded Confirmed Last Taken Type Doxycycline Hyclate 100 mg PO BID #14 09/09/21 Unknown Rx Ibuprofen [Motrin] 800 mg PO Q8HR PRN #30 tablet 09/09/21 Unknown Rx oxyCODONE /ACETAMINOPHEN [Percocet 1 tab PO Q6HR PRN #20 tablet 09/09/21 Unknown Rx 5/325] Active Meds: Active Medications Acetaminophen (Acetaminophen 325 Mg Tab) 650 mg PO Q4H PRN PRN Reason: Pain MILD(1-3)/Fever >100.5/GILES Last Admin: 09/08/21 08:00 Dose: 650 mg Dextrose/Lactated Ringer's (D5lr) 1,000 mls @ 125 mls/hr IV DIRECT AGUILAR Last Admin: 09/10/21 11:14 Dose: 125 mls/hr Ceftriaxone Sodium (Rocephin/Ns 1 Gm/50 Ml) 1 gm in 50 mls @ 100 mls/hr IV Q24H AGUILAR; Protocol Last Admin: 09/12/21 10:15 Dose: 100 mls/hr Morphine Sulfate (Morphine 2 Mg/1 Ml Inj) 2 mg IV Q4H PRN PRN Reason: Pain, Moderate (4-6) Last Admin: 09/11/21 16:15 Dose: 2 mg Morphine Sulfate (Morphine 4 Mg/1 Ml Inj) 4 mg IV Q4H PRN PRN Reason: Pain , Severe (7-10) Last Admin: 09/08/21 13:27 Dose: 4 mg Naloxone HCl (Naloxone 0.4 Mg/1 Ml Inj) 0.1 mg IV Q2MIN PRN PRN Reason: Res Rate </= 8 or 02 SAT < 92% Ondansetron HCl (Ondansetron 4 Mg/2 Ml Inj) 4 mg IV Q8H PRN PRN Reason: Nausea And Vomiting Last Admin: 09/11/21 23:27 Dose: 4 mg Oxycodone/Acetaminophen (Oxycodone /Acetaminophen 5-325mg Tab) 2 tab PO Q6H PRN PRN Reason: Pain, Moderate (4-6) Last Admin: 09/11/21 23:27 Dose: 2 tab Potassium Chloride (Potassium Chloride Er 20 Meq Tab) 40 meq PO ONCE@1000 AGUILAR Stop: 09/12/21 14:00 Last Admin: 09/12/21 10:15 Dose: 40 meq Sodium Chloride (Sodium Chloride 0.9% 10 Ml Flush Syringe) 10 ml IV BID [facility] Last Admin: 09/08/21 22:01 Dose: 10 ml Sodium Chloride (Sodium Chloride 0.9% 10 Ml Flush Syringe) 10 ml IV PRN PRN PRN Reason: LINE FLUSH Physical Examination - Physical Exam Narrative exam: Physical Exam: Constitutional: Alert, cooperative. No acute distress Head, Ears, Nose: Normocephalic, atraumatic. External ears, nose normal Eyes: Conjunctivae/corneas clear. No icterus. No ptosis. Neck: Supple, no meningeal signs Cardiovascular: S1, S2 + Respiratory: Good air entry, clear to auscultation bilaterally GI: Soft, mild tenderness +; bowel sounds normal. No peritoneal signs. Drain present Musculoskeletal: No pedal edema, no cyanosis. Skin: No rash or abscess Hem/Lymphatic: No palpable cervical or supraclavicular nodes. No lymphangitis Psych: Mood ok. Affect normal Neurological: Awake, alert, oriented. No gross abnormality - Constitutional Vitals: Vital Signs Temp Pulse Resp BP Pulse Ox 99.1 F 81 20 142/91 99 09/12/21 12:10 09/12/21 12:10 09/12/21 12:10 09/12/21 12:10 09/12/21 12:10 Temperature -Last 24 Hours Temperature 99.1 F Temperature 98.7 F Temperature 98.3 F Temperature 98.8 F Temperature 99.1 F Temperature 98.9 F Results - Labs CBC & Chem 7: 09/12/21 08:19 09/12/21 08:19 Labs: Abnormal lab results 09/12/21 09/12/21 Range/Units 08:19 08:19 RDW 15.5 H (13.2-15.2) % Lymph % (Auto) 10.0 L (13.4-35.0) % [place] % (Auto) 11.7 H (0.0-7.3) % Lymph # (Auto) 0.9 L (1.2-5.4) K/mm3 [place] # (Auto) 1.0 H (0.0-0.8) K/mm3 Seg Neutrophils % 77.6 H (40.0-70.0) % Potassium 2.9 L* (3.6-5.0) mmol/L Chloride 96.8 L (98-107) mmol/L BUN 3 L (7-17) mg/dL Creatinine 0.5 L (0.6-1.2) mg/dL Glucose 101 H (65-100) mg/dL Calcium 7.8 L (8.4-10.2) mg/dL - Imaging and Cardiology CT scan - pelvis: report reviewed, image reviewed (complex cystic mass / TOA) Assessment and Plan Cultures: 09/06/2021 blood culture: No growth 09/08/2021 surgical drainage culture: E. coli 09/06/2021 cervical wet prep: Negative COVID-19 PCR: Negative 09/06/2021 GC NAAT: Negative A/P: 26/F with: #Sepsis, secondary to tubo-ovarian abscess: Status post IR drainage. #Nausea, vomiting: Likely antibiotic related #Amoxicillin allergy Recs: -Given improvement in nausea, vomiting after stopping Flagyl, continue IV ceftriaxone 1 gm daily alone -Upon discharge, switch to oral levofloxacin 500 mg daily for 10 days -Drain management per [facility]ING COVERER/IR Ted Loera MD, [facility] O: [phone] F: [phone]
[2021-09-12] MEDS: oxyCODONE /ACETAMINOPHEN 5-325MG TAB PO PRN ×2 (15:28→22:30)
[2021-09-13] MEDS: oxyCODONE /ACETAMINOPHEN 5-325MG TAB PO PRN (08:10)
--- NOTE | 2021-09-13 08:40 | Progress Note ---
Assessment and Plan A: HD #7 admitted for tuboovarian abscess s/p percutaneous drainage on 09/08/21; previously on ceftriaxone, doxycycline and metronidazole but noted to have nausea vomiting and diarrhea with metronidazole. Afebrile now and vomiting resolved with cessation of metranidazole P: Recheck BMP to ensure potassium is normalized. Discharge today with follow up in 1 wk Subjective - Subjective Date of service: 09/13/21 Principal diagnosis: Tubo-ovarian abscess, status post percutaneous drainage of same Interval history: No emesis yesterday after Flagyl discontinued. s/p ID and GI consults. Tolerating regular diet. Afebrile. Patient reports: appetite normal, voiding normally, pain well controlled, ambulating normally Objective - Vital Signs Latest vital signs: Vital Signs Temp Pulse Resp BP BP Pulse Ox 09/13/21 07:46 98.5 F 77 18 130/82 96 09/13/21 07:22 16 98 09/13/21 04:21 98.1 F 74 18 125/83 95 09/12/21 23:34 98.5 F 84 20 118/66 94 09/12/21 20:01 94 09/12/21 19:56 98.3 F 96 H 20 142/85 97 09/12/21 19:45 97 09/12/21 16:06 98.9 F 80 20 129/79 99 09/12/21 12:10 99.1 F 81 20 142/91 99 Intake and Output 09/12/21 09/13/21 09/13/21 22:59 06:59 14:59 Intake Total 600 120 Output Total 80 5 Balance 520 115 Intake: Oral 600 120 Output: Drainage 80 5 Abdomen 80 5 Other: Total, Intake Amount 240 120 Total, Output Amount 40 5 Voiding Method Toilet Toilet # Voids Void 1 1 - Exam Breasts: Present: deferred Abdomen: Present: soft. Absent: distention Extremities: Present: normal - Labs Labs: Abnormal lab results 09/12/21 Range/Units 08:19 Potassium 2.9 L* (3.6-5.0) mmol/L Chloride 96.8 L (98-107) mmol/L BUN 3 L (7-17) mg/dL Creatinine 0.5 L (0.6-1.2) mg/dL Glucose 101 H (65-100) mg/dL Calcium 7.8 L (8.4-10.2) mg/dL
--- NOTE | 2021-09-13 08:41 | Discharge Summary ---
Providers - Providers Date of Admission: 09/07/21 14:10 Date of discharge: 09/13/21 Attending physician: CATHERINE HOWELL 09/07/21 07:00 Consult to Interventional Radiology [CONS] Routine Consulting Provider: ROBERTO PICHARDO Reason For Exam: [address] consult to:: Radiology Notified:: [id number] 09/12/21 07:33 Consult to Physician [CONS] Routine Comment: Consulting Provider: TAMI LAW Physician Instructions: Reason For Exam: Tuboovarian abcess s/p drainage 09/12/21 07:35 Consult to Physician [CONS] Routine Comment: Consulting Provider: ROBERTO LIM Physician Instructions: Reason For Exam: admitted for TOA s/p drainage; new onset N/V/D 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 She developed nausea and vomiting two days after her procedure, thought to be secondary to metronidazle. On HD #7 she met discharge criteria. She will follow up in office in 1 wk. Condition at discharge: Stable Disposition: 01 HOME / SELF CARE / HOMELESS - Discharge Diagnoses (1) Tubo-ovarian abscess Status: Acute Plan - Discharge Medications Prescriptions: RX: Doxycycline Hyclate 100 mg PO BID #14 levoFLOXacin [Levaquin TAB] 500 mg PO QDAY #10 tablet Ibuprofen [Motrin] 800 mg PO Q8HR PRN #30 tablet PRN Reason: Pain , Severe (7-10) oxyCODONE /ACETAMINOPHEN [Percocet 5/325] 1 tab PO Q6HR PRN #20 tablet PRN Reason: Pain - Provider Discharge Summary Activity: no sex for 6 weeks, no heavy lifting 4 weeks, no strenuous exercise Diet: routine Instructions: routine Additional instructions: [] Smoking cessation referral if applicable(refer to patient education folder for contact #) [] Refer to [facility] Booklet Call your doctor immediately for: * Fever > 100.5 * Heavy vaginal bleeding ( >1 pad per hour) * Severe persistent headache * Shortness of breath * Reddened, hot, painful area to leg or breast * Drainage or odor from incision. * Keep incision clean and dry at all times and follow doctor's instructions regarding bathing/showering - Follow up plan Follow up: PRIMARY CARE, [Primary Care Provider] - 3-5 Days CATHERINE HOWELL MD [Staff Physician] - 7 Days Forms: Work/School Excuse Out Patient, Work/School Release Form
[2021-09-13] MEDS: cefTRIAXone/NS 1 GM/50 ML 1 GM/50 ML BAG IV SCH ×2 (09:24→09:42)
[2021-09-13 09:48] LABS: Blood Urea Nitrogen 2 mg/dL (7-17); Calcium 8.1 mg/dL (8.4-10.2); Hemolysis Index 6
[2021-09-13 09:54] LABS: BUN/Creatinine Ratio 5
[2021-09-13 12:34] VITALS: BP 125/85
== END 2021-09-13 11:43 | disposition home or self-care (01) | DRG 872 ==
LOC: ED 10:50 → OB 18:13 → OBSVTOIN 09-07 14:10
PROVIDERS: ADMIT Obstetrics & Gynecology; ATTEND Obstetrics & Gynecology
PROC: 0W9J30Z Drainage of Pelvic Cavity with Drainage Device, Percutaneous Approach (ICD-10-PCS; principal; 2021-09-08)
DX: A41.9 Sepsis, unspecified organism (principal); N83.202 Unspecified ovarian cyst, left side; R10.2 Pelvic and perineal pain; Z88.8 Allergy status to other drugs, medicaments and biological substances; N70.93 Salpingitis and oophoritis, unspecified
CPT/HCPCS: 10160; 36415; 74177; 76830; 76856; 77012; 80048; 80053; 81001; 82140; 84703; 85007; 85025; 87040; 87076; 87116; 87186; 87210; 87591; G0378; J3490; J7060; J7517; Q0162; C1769; J0696; J1885; J1956; J2250; J2270; J2405; J3010; J7030; J7050; J7121; Q9967; U0003

== ENCOUNTER 2021-10-04 17:29 | Inpatient (IN) | payer OTHER ==
[2021-10-04] MEDS ORDERED: ACETAMINOPHEN 325 MG TAB PO PRN (17:55)
[2021-10-04] MEDS ORDERED: LACTATED RINGERS 1000 ML IV SOLN IV ONE (17:55)
[2021-10-04] MEDS ORDERED: ACETAMINOPHEN 500 MG TAB PO ONE (17:56)
--- NOTE | 2021-10-04 18:08 | Emergency Department Report ---
ED Fever HPI - General Chief Complaint: Fever Stated Complaint: PELVIC PAIN/FEVER/FAINTED/ALICIA Time Seen by Provider: 10/04/21 17:57 - History of Present Illness Initial Comments: Patient presents secondary to abdominal pain associate with fever. She had a tubo-ovarian abscess that was drained percutaneously on September 06. This was done at this facility under the care of Dr. Bae, TRADE MANAGER. She had done well postoperatively. Over the last couple of days she developed increasing fevers. She has had ongoing lower abdominal pain despite having the percutaneous drainage. Patient states that she is not currently on antibiotics. A couple of days ago she was using Tylenol and ibuprofen for fever. 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 They were concerned that she might have an abscess that was recurrent. She was sent here for CT and further evaluation. Patient denies cough or congestion. There is no dysuria or frequency. She states that the pain in the lower abdomen is intermittent and not nearly as intense as it was previously. ED Review of Systems ROS: Stated complaint: PELVIC PAIN/FEVER/FAINTED/ALICIA Other details as noted in HPI Comment: All other systems reviewed and negative Constitutional: see HPI Eyes: denies: vision change ENT: denies: throat pain Respiratory: denies: cough Cardiovascular: denies: chest pain Endocrine: denies: unexplained weight loss Gastrointestinal: as per HPI Genitourinary: denies: dysuria Musculoskeletal: denies: back pain Skin: denies: rash Neurological: denies: headache Hematological/Lymphatic: denies: easy bruising ED Past Medical Hx - Past Medical History Hx Congestive Heart Failure: No Hx Diabetes: No Hx Asthma: No - Surgical History Additional Surgical History: Percutaneous drainage of tubo-ovarian abscess - Family History Family history: no significant - Social History Smoking Status: Current Some Day Smoker (We discussed tobacco cessation) - Medications Home Medications: Home Medications Medication Instructions Recorded Confirmed Last Taken Type Doxycycline Hyclate 100 mg PO BID #14 09/09/21 Unknown Rx Ibuprofen [Motrin] 800 mg PO Q8HR PRN #30 tablet 09/09/21 Unknown Rx oxyCODONE /ACETAMINOPHEN [Percocet 1 tab PO Q6HR PRN #20 tablet 09/09/21 Unknown Rx 5/325] levoFLOXacin [Levaquin TAB] 500 mg PO QDAY #10 tablet 09/13/21 Unknown Rx ED Physical Exam - General Limitations: No Limitations, Other (Pulse ox noted and normal) General appearance: alert, in no apparent distress, anxious - Head Head exam: Present: atraumatic, normocephalic, normal inspection - Eye Eye exam: Present: normal appearance, PERRL, EOMI. Absent: scleral icterus - ENT ENT exam: Present: normal orophraynx, normal external ear exam - Neck Neck exam: Present: normal inspection. Absent: meningismus - Respiratory Respiratory exam: Present: normal lung sounds bilaterally. Absent: respiratory distress - Cardiovascular Cardiovascular Exam: Present: normal rhythm, tachycardia - GI/Abdominal GI/Abdominal exam: Present: soft, tenderness (Suprapubic). Absent: guarding, rebound - Extremities Exam Extremities exam: Present: normal capillary refill - Back Exam Back exam: Absent: CVA tenderness (R), CVA tenderness (L) - Neurological Exam Neurological exam: Present: alert, oriented X3, CN II-XII intact, normal gait. Absent: motor sensory deficit - Psychiatric Psychiatric exam: Present: anxious - Skin Skin exam: Present: warm, dry ED Course Vital Signs 10/04/21 17:49 Temperature 103.2 F H Pulse Rate 138 H Respiratory 16 Rate Blood Pressure 156/86 [Left] O2 Sat by Pulse 97 Oximetry - Reevaluation(s) Reevaluation #1: 10/04/21 18:05 IV and labs ordered. CT was ordered. Old records noted. Reevaluation #2: 10/04/21 18:51 Care was signed out to Dr. Hawley pending labs and CT. ED Medical Decision Making - Lab Data Result diagrams: 10/04/21 18:05 - Medical Decision Making Patient presented secondary to fever with abdominal pain and possible postop infection. She has labs and CT pending. There would be concern for postoperative abscess in a hospital-acquired fashion. Cefepime has been ordered. Her prior culture grew out E. coli. Critical Care Time: No Critical care attestation.: If time is entered above; I have spent that time in minutes in the direct care of this critically ill patient, excluding procedure time. ED Disposition Clinical Impression: Acute febrile illness, Lower abdominal pain, Hypokalemia Disposition: 30 STILL A PATIENT Is pt being admited?: No Condition: Stable
[2021-10-04] MEDS ORDERED: CEFEPIME/NS 2 GM/100 ML 2 GM/100 ML BAG IV ONE (18:09)
[2021-10-04 18:41] LABS: Alanine Aminotransferase 26 units/L (7-56); Albumin 3.4 g/dL (3.9-5); Blood Urea Nitrogen 2 mg/dL (7-17); Calcium 9.4 mg/dL (8.4-10.2); Hemolysis Index 0
[2021-10-04 18:52] LABS: BUN/Creatinine Ratio 3
[2021-10-04 19:19] LABS: Basophils % (Auto) 0.3 % (0.0-1.8); Eosinophils % (Auto) 0.1 % (0.0-4.3); Hematocrit 29.9 % (30.3-42.9); Hemoglobin 9.4 gm/dl (10.1-14.3); Lymphocytes # (Auto) 1.4 K/mm3 (1.2-5.4); Lymphocytes % (Auto) 9.9 % (13.4-35.0); Mean Corpuscular HGB Conc 32 % (30-34); Mean Corpuscular Volume 85 fl (79-97); Monocytes # (Auto) 1.4 K/mm3 (0.0-0.8); Monocytes % (Auto) 10.2 % (0.0-7.3); Platelet Count 465 K/mm3 (140-440); Red Blood Count 3.52 M/mm3 (3.65-5.03); Red Cell Distribution Width 16.4 % (13.2-15.2)
--- NOTE | 2021-10-04 20:13 | Cat Scan Report ---
CT abdomen pelvis w con INDICATION / CLINICAL INFORMATION: Postop abscess. TECHNIQUE: Axial CT images were obtained through the abdomen and pelvis after 100 cc of Omnipaque [address] scans at this location are performed using CT dose reduction for ALARA by means of automated exposure control. COMPARISON: Ultrasound and CT from 09/06/2021. FINDINGS: LOWER CHEST: No significant abnormality LIVER: No significant abnormality GALLBLADDER/BILIARY TREE: No significant abnormality PANCREAS: No significant abnormality SPLEEN: No significant abnormality ADRENALS: No significant abnormality KIDNEYS / URETER: Unchanged mild pelviectasis without lalo hydronephrosis. The kidneys enhance symme trically. URINARY BLADDER: No significant abnormality REPRODUCTIVE ORGANS: Large complex cystic structure within the left adnexa is not significantly gaitan ed in size, measuring 11.5 x 7.4 cm transaxially (series 2 image 135); previously measured 12.6 x 9.9 cm. Adjacent tubular cystic areas along the right aspect of the dominant cystic structure are again seen and appear unchanged. This displaces the uterus and bladder. STOMACH / BOWEL: No evidence of bowel obstruction or inflammation. LYMPH NODES: No significant adenopathy. VASCULATURE: No significant abnormality. OTHER: No free air, free fluid, or focal fluid collection is identified. SKELETAL SYSTEM: No acute osseous findings. IMPRESSION: Large complex cystic structure within the left aspect of the pelvis. This was reported to be a tubo-o varian abscess and reportedly underwent interval drainage, though it is similar in size when compared to prior study from 09/06/2021. Given provided history, findings are consistent with reaccumulation of pelvic abscess. Signer Name: Aquiles Razo MD Signed: 10/04/2021 8:08 PM Workstation Name: [id number]
[2021-10-04 20:19] LABS: Bilirubin,Urine NEG (Negative); Blood,Urine NEG (Negative); Color,Urine Yellow (Yellow); Mucus,Urine FEW /HPF; Protein,Urine <15 mg/dL mg/dL (Negative); Urobilinogen,Urine < 2.0 mg/dL (<2.0)
[2021-10-04] MEDS ORDERED: oxyCODONE /ACETAMINOPHEN 5-325MG TAB PO PRN (21:35)
[2021-10-04] MEDS ORDERED: ONDANSETRON 4 MG/2 ML INJ IV PRN (21:35)
[2021-10-04] MEDS ORDERED: MORPHINE 4 MG/1 ML INJ IV PRN (21:35)
[2021-10-04] MEDS: D5W/LACTATED RINGERS 1,000 ML IV SCH (23:17)
[2021-10-04] MEDS: POTASSIUM CHLORIDE 10 MEQ 10 MEQ/100 ML BAG IV SCH (23:17)
[2021-10-05] MEDS: POTASSIUM CHLORIDE 10 MEQ 10 MEQ/100 ML BAG IV SCH (01:53)
[2021-10-05] MEDS: CEFEPIME/NS 2 GM/100 ML 2 GM/100 ML BAG IV SCH ×3 (05:08→20:31)
[2021-10-05] MEDS: ACETAMINOPHEN 325 MG TAB PO PRN ×2 (05:09→21:08)
[2021-10-05 12:24] LABS: Hematocrit 28.4 % (30.3-42.9); Hemoglobin 9.1 gm/dl (10.1-14.3); Mean Corpuscular HGB Conc 32 % (30-34); Mean Corpuscular Volume 85 fl (79-97); Platelet Count 429 K/mm3 (140-440); Red Blood Count 3.36 M/mm3 (3.65-5.03); Red Cell Distribution Width 16.4 % (13.2-15.2)
--- NOTE | 2021-10-05 16:16 | History and Physical Report ---
History of Present Illness Date of admission: 10/04/21 21:35 Past History - Obstetrical History : 0 Medications and Allergies Allergies Allergy/AdvReac Type Severity Reaction Status Date / Time amoxicillin AdvReac Unknown Verified 09/06/21 11:04 Home Medications Medication Instructions Recorded Confirmed Last Taken Type Doxycycline Hyclate 100 mg PO BID #14 09/09/21 Unknown Rx Ibuprofen [Motrin] 800 mg PO Q8HR PRN #30 tablet 09/09/21 Unknown Rx oxyCODONE /ACETAMINOPHEN [Percocet 1 tab PO Q6HR PRN #20 tablet 09/09/21 Unknown Rx 5/325] levoFLOXacin [Levaquin TAB] 500 mg PO QDAY #10 tablet 09/13/21 Unknown Rx Active Meds: Active Medications Acetaminophen (Acetaminophen 325 Mg Tab) 650 mg PO Q4H PRN PRN Reason: Pain, Mild (1-3) Last Admin: 10/05/21 05:09 Dose: 650 mg Dextrose/Lactated Ringer's (D5lr) 1,000 mls @ 125 mls/hr IV DIRECT AGUILAR Last Admin: 10/04/21 23:17 Dose: 125 mls/hr Cefepime HCl (Cefepime/Ns 2 Gm/100 Ml) 2 gm in 100 mls @ 200 mls/hr IV Q8H AGUILAR; Protocol Last Admin: 10/05/21 12:39 Dose: 200 mls/hr Ibuprofen (Ibuprofen 800 Mg Tab) 800 mg PO Q8H PRN PRN Reason: Pain, Moderate (4-6) Morphine Sulfate (Morphine 4 Mg/1 Ml Inj) 4 mg IV Q4H PRN PRN Reason: Pain , Severe (7-10) Ondansetron HCl (Ondansetron 4 Mg/2 Ml Inj) 4 mg IV Q8H PRN PRN Reason: Nausea And Vomiting Oxycodone/Acetaminophen (Oxycodone /Acetaminophen 5-325mg Tab) 2 tab PO Q6H PRN PRN Reason: Pain, Moderate (4-6) - Vital Signs Vital signs: Vital Signs Temp Pulse Resp BP Pulse Ox 103.2 F H 138 H 16 156/86 97 10/04/21 17:49 10/04/21 17:49 10/04/21 17:49 10/04/21 17:49 10/04/21 17:49 Temp Pulse Resp BP Pulse Ox 98.2 F 92 H 18 97/65 96 10/05/21 16:14 10/05/21 16:14 10/05/21 16:14 10/05/21 16:14 10/05/21 16:14 Results Result Diagrams: 10/05/21 12:04 10/05/21 12:04 Abnormal lab results 10/04/21 10/04/21 10/04/21 Range/Units 18:05 18:05 18:05 WBC 13.9 H (4.5-11.0) K/mm3 RBC 3.52 L (3.65-5.03) M/mm3 Hgb 9.4 L (10.1-14.3) gm/dl Hct 29.9 L (30.3-42.9) % MCH 27 L (28-32) pg RDW 16.4 H (13.2-15.2) % Plt Count 465 H (140-440) K/mm3 Lymph % (Auto) 9.9 L (13.4-35.0) % [place] % (Auto) 10.2 H (0.0-7.3) % [place] # (Auto) 1.4 H (0.0-0.8) K/mm3 Seg Neutrophils % 79.5 H (40.0-70.0) % Seg Neutrophils # 11.0 H (1.8-7.7) K/mm3 Sodium 130 L (137-145) mmol/L Potassium 3.3 L (3.6-5.0) mmol/L Chloride 90.4 L (98-107) mmol/L BUN 2 L (7-17) mg/dL Glucose 116 H (65-100) mg/dL Lactic Acid 2.50 H* (0.7-2.0) mmol/L Total Protein 8.4 H (6.3-8.2) g/dL Albumin 3.4 L (3.9-5) g/dL 10/05/21 Range/Units 12:04 WBC 14.6 H (4.5-11.0) K/mm3 RBC 3.36 L (3.65-5.03) M/mm3 Hgb 9.1 L (10.1-14.3) gm/dl Hct 28.4 L (30.3-42.9) % MCH 27 L (28-32) pg RDW 16.4 H (13.2-15.2) % Plt Count (140-440) K/mm3 Lymph % (Auto) (13.4-35.0) % [place] % (Auto) (0.0-7.3) % [place] # (Auto) (0.0-0.8) K/mm3 Seg Neutrophils % (40.0-70.0) % Seg Neutrophils # (1.8-7.7) K/mm3 Sodium (137-145) mmol/L Potassium (3.6-5.0) mmol/L Chloride (98-107) mmol/L BUN (7-17) mg/dL Glucose (65-100) mg/dL Lactic Acid (0.7-2.0) mmol/L Total Protein (6.3-8.2) g/dL Albumin (3.9-5) g/dL All other labs normal.
[2021-10-06] MEDS: CEFEPIME/NS 2 GM/100 ML 2 GM/100 ML BAG IV SCH ×3 (05:00→21:19)
[2021-10-06] MEDS: D5W/LACTATED RINGERS 1,000 ML IV SCH ×2 (05:00→21:20)
--- NOTE | 2021-10-06 08:06 | Progress Note ---
Assessment and Plan A: Tubo-Ovarian Abscess P: Pt scheduled for drainage procedure today, NPO overnight ID consult to guide antibiotics given reaccumulation of abscess Plan serial CT scans to document resolution Subjective - Subjective Date of service: 10/06/21 Principal diagnosis: Tubo-Ovarain Abscess Interval history: Overnight patient was febrile to 102.7 around 9 PM. She denies pelvic pain this morning. Patient reports: voiding normally, pain well controlled, ambulating normally Objective - Vital Signs Latest vital signs: Vital Signs Temp Pulse Resp BP BP Pulse Ox 10/06/21 07:40 100.0 F H 111 H 22 116/61 100 10/06/21 06:23 98.9 F 109 H 18 121/67 100 10/06/21 00:19 98.1 F 93 H 20 103/56 99 10/05/21 23:00 98.6 F 18 10/05/21 22:08 18 10/05/21 21:08 18 10/05/21 21:00 102.7 F H 122 H 16 131/72 99 10/05/21 20:00 100 10/05/21 16:14 98.2 F 92 H 18 135/75 96 10/05/21 12:55 98.2 F 111 H 20 129/80 100 10/05/21 09:35 98.9 F 116 H 18 146/89 100 10/05/21 08:34 96 Intake and Output 10/05/21 10/06/21 10/06/21 22:59 06:59 14:59 Intake Total 1000 340 Balance 1000 340 Intake: IV 100 CEFEPIME/NS 2 GM/100 ML 2 100 gm In 100 ml @ 200 mls/ hr IV Q8H [facility] Rx#: [id number] Oral 640 Intake, Free Water 360 240 Other: Total, Intake Amount 320 Voiding Method Toilet # Voids Void 1 2 - Exam Breasts: Present: deferred Abdomen: Present: soft - Labs Labs: Abnormal lab results 10/05/21 Range/Units 12:04 WBC 14.6 H (4.5-11.0) K/mm3 RBC 3.36 L (3.65-5.03) M/mm3 Hgb 9.1 L (10.1-14.3) gm/dl Hct 28.4 L (30.3-42.9) % MCH 27 L (28-32) pg RDW 16.4 H (13.2-15.2) %
[2021-10-06] MEDS ORDERED: fentaNYL 100 MCG/2 ML INJ IV NR (08:31)
[2021-10-06] MEDS ORDERED: MIDAZOLAM 5 MG/5 ML INJ MDV IV ONE (08:31)
[2021-10-06] MEDS ORDERED: SODIUM CHLORIDE 0.9% 500 ML 0 ML ONE (08:42)
--- NOTE | 2021-10-06 08:58 | Consultation ---
History of Present Illness - Reason for Consult Consult date: 10/06/21 Tubo-ovarian abscess - History of Present Illness Patient with a history of fever and mild abdominal pain who presented to the ER and was found to have recurrent TOA. Review of CT scan demonstrates that this TOA has thick albright with likely a chronic component. On examination this morning, the patient is resting comfortably with no complaints. Past History Past Surgical History: Other (Drainage catheter placement of TOA 1 month ago) Medications and Allergies Allergies Allergy/AdvReac Type Severity Reaction Status Date / Time metronidazole [From Flagyl] Allergy Unknown Verified 10/05/21 22:10 amoxicillin AdvReac Unknown Verified 09/06/21 11:04 Home Medications Medication Instructions Recorded Confirmed Last Taken Type Doxycycline Hyclate 100 mg PO BID #14 09/09/21 Unknown Rx Ibuprofen [Motrin] 800 mg PO Q8HR PRN #30 tablet 09/09/21 Unknown Rx oxyCODONE /ACETAMINOPHEN [Percocet 1 tab PO Q6HR PRN #20 tablet 09/09/21 Unknown Rx 5/325] levoFLOXacin [Levaquin TAB] 500 mg PO QDAY #10 tablet 09/13/21 Unknown Rx Active Meds: Active Medications Acetaminophen (Acetaminophen 325 Mg Tab) 650 mg PO Q4H PRN PRN Reason: Pain, Mild (1-3) Last Admin: 10/05/21 21:08 Dose: 650 mg Fentanyl (Fentanyl 100 Mcg/2 Ml Inj) 100 mcg IV ONCE NR Stop: 10/06/21 12:00 Dextrose/Lactated Ringer's (D5lr) 1,000 mls @ 125 mls/hr IV DIRECT AGUILAR Last Admin: 10/06/21 05:00 Dose: 125 mls/hr Cefepime HCl (Cefepime/Ns 2 Gm/100 Ml) 2 gm in 100 mls @ 200 mls/hr IV Q8H AGUILAR; Protocol Last Admin: 10/06/21 05:00 Dose: 200 mls/hr Ibuprofen (Ibuprofen 800 Mg Tab) 800 mg PO Q8H PRN PRN Reason: Pain, Moderate (4-6) Morphine Sulfate (Morphine 4 Mg/1 Ml Inj) 4 mg IV Q4H PRN PRN Reason: Pain , Severe (7-10) Ondansetron HCl (Ondansetron 4 Mg/2 Ml Inj) 4 mg IV Q8H PRN PRN Reason: Nausea And Vomiting Oxycodone/Acetaminophen (Oxycodone /Acetaminophen 5-325mg Tab) 2 tab PO Q6H PRN PRN Reason: Pain, Moderate (4-6) Review of Systems All systems: negative Exam - Constitutional Vitals: Temp Pulse Resp BP Pulse Ox 100.0 F H 111 H 22 116/61 100 10/06/21 07:40 10/06/21 07:40 10/06/21 07:40 10/06/21 07:40 10/06/21 07:40 General appearance: Present: no acute distress - EENT Eyes: Present: EOM intact ENT: hearing intact - Neck Neck: Present: supple, normal ROM - Respiratory Respiratory effort: normal - Abdominal General gastrointestinal: Present: non-distended Female genitourinary: Present: deferred - Rectal Rectal Exam: deferred - Psychiatric Psychiatric: appropriate mood/affect, cooperative Results - Labs CBC & Chem 7: 10/05/21 12:04 10/05/21 12:04 Labs: Abnormal lab results 10/05/21 Range/Units 12:04 WBC 14.6 H (4.5-11.0) K/mm3 RBC 3.36 L (3.65-5.03) M/mm3 Hgb 9.1 L (10.1-14.3) gm/dl Hct 28.4 L (30.3-42.9) % MCH 27 L (28-32) pg RDW 16.4 H (13.2-15.2) % - Imaging and Cardiology CT scan - abdomen: report reviewed, image reviewed CT scan - pelvis: report reviewed, image reviewed Assessment and Plan Patient with history of recurrent TOA. Review of CT scan demonstrates thick albright which likely represents a chronic process. We will attempt percutaneous drainage a second time. I discussed this at length with patient and the patient understands that if there is a recurrence after this aspiration and drainage and antibiotic therapy that she may require surgical removal. Plan this morning to bring the patient down for CT-guided drainage catheter placement of TOA with aspiration of contents and sample sent for laboratory analysis.
--- NOTE | 2021-10-06 09:49 | Operative Report ---
Operative Report Operative Report: Exam: CT-guided placement of drainage catheter Clinical indication: Patient with a history of recurrent TOA Date: 10/06/2021 Procedure: Following an explanation of the risk, benefits and alternatives; written informed consent was obtained. The patient was brought to the CT suite and placed in supine position on the gantry. Initial pharmacy resource tech images of the abdomen and pelvis were obtained and an appropriate access site was chosen in the lower abdomen. The patient's abdomen was prepped and draped in the usual sterile fashion. 1% lidocaine was used for anesthesia. Using intermittent CT guidance, a 15 cm 17-gauge trocar needle was advanced into the central aspect of the fluid collection. There is prompt return of purulent serous fluid. A 0.035 guidewire was then advanced and coiled within the fluid collection and images obtained to document appropriate positioning of the guidewire. The needle was removed and following serial dilation over the guidewire, a 10 pigtail drainage catheter was placed over the guidewire. The guidewire and trocar were removed. Postplacement images demonstrated appropriate positioning with the pigtail portion of the catheter within the dependent portion of the fluid. A total of 500 mL of seropurulent fluid was aspirated. Sample sent for laboratory analysis. Post aspiration imaging demonstrated near complete collapse of the patient's TOA. The catheter was securely fastened to the skin surface using 2-0 silk suture and a sterile dressing applied. The catheter was then placed to RICHARD bulb drainage. The patient tolerated the procedure well. There were no immediate postprocedure complications. Conscious sedation was performed under the guidance of radiologic nursing. C ontinuous cardiopulmonary monitoring is utilized. Impression: CT-guided placement of 10 [place] drainage catheter in TOA with 500 mL of seropurulent fluid aspirated. A sample was sent for laboratory analysis.
--- NOTE | 2021-10-06 10:59 | Consultation ---
History of Present Illness - Reason for Consult Consult date: 10/06/21 - History of Present Illness 26-year-old female past medical history of tubo-ovarian abscess presented to hospital for recurrence of the abscess. She was recently admitted to this hospital and had percutaneous drainage of the abscess on 09/08/2021. At that time she was treated with ceftriaxone inpatient and was discharged with levofloxacin. She complained of severe nausea and vomiting with Flagyl. She is also noted to have an amoxicillin allergy. Previous gonorrhea and Chlamydia testing was negative. Surgical drainage culture at that time was positive for E. coli. Febrile to 103.2 with a white count of 14.6. Blood cultures no growth so far. Currently on cefepime. Repeat IR drainage was performed. Patient personally reviewed: Slight CT abdomen pelvis: Complex cystic structure in the left pelvis. Similar in size to previous study Review of Systems: Bold if positive, otherwise negative General: fevers, chills, rigors HEENT: visual disturbance, diplopia, eye pain Respiratory: cough, sputum, hemoptysis, shortness of breath Cardiovascular: chest pain, syncope Gastrointestinal: nausea, vomiting, diarrhea, abdominal pain Genitourinary: dysuria, hematuria, flank pain Musculoskeletal: neck pain, back pain, joint pain, edema Neurologic: headaches, seizures Hematologic: easy bruising or bleeding Endocrine: night sweats, acute weight loss Skin: rash, jaundice, redness Psychiatric: suicidal, homicidal ideation Past History Past Medical History: other (Tubo-ovarian abscess) Past Surgical History: Other (Drainage catheter placement of TOA 1 month ago) Social history: no significant social history Family history: hypertension Medications and Allergies Allergies Allergy/AdvReac Type Severity Reaction Status Date / Time metronidazole [From Flagyl] Allergy Unknown Verified 10/05/21 22:10 amoxicillin AdvReac Unknown Verified 09/06/21 11:04 Home Medications Medication Instructions Recorded Confirmed Last Taken Type Doxycycline Hyclate 100 mg PO BID #14 09/09/21 Unknown Rx Ibuprofen [Motrin] 800 mg PO Q8HR PRN #30 tablet 09/09/21 Unknown Rx oxyCODONE /ACETAMINOPHEN [Percocet 1 tab PO Q6HR PRN #20 tablet 09/09/21 Unknown Rx 5/325] levoFLOXacin [Levaquin TAB] 500 mg PO QDAY #10 tablet 09/13/21 Unknown Rx Active Meds: Active Medications Acetaminophen (Acetaminophen 325 Mg Tab) 650 mg PO Q4H PRN PRN Reason: Pain, Mild (1-3) Last Admin: 10/05/21 21:08 Dose: 650 mg Fentanyl (Fentanyl 100 Mcg/2 Ml Inj) 100 mcg IV ONCE NR Stop: 10/06/21 12:00 Last Admin: 10/06/21 09:25 Dose: 100 mcg Dextrose/Lactated Ringer's (D5lr) 1,000 mls @ 125 mls/hr IV DIRECT AGUILAR Last Admin: 10/06/21 05:00 Dose: 125 mls/hr Cefepime HCl (Cefepime/Ns 2 Gm/100 Ml) 2 gm in 100 mls @ 200 mls/hr IV Q8H AGUILAR; Protocol Last Admin: 10/06/21 05:00 Dose: 200 mls/hr Ibuprofen (Ibuprofen 800 Mg Tab) 800 mg PO Q8H PRN PRN Reason: Pain, Moderate (4-6) Morphine Sulfate (Morphine 4 Mg/1 Ml Inj) 4 mg IV Q4H PRN PRN Reason: Pain , Severe (7-10) Ondansetron HCl (Ondansetron 4 Mg/2 Ml Inj) 4 mg IV Q8H PRN PRN Reason: Nausea And Vomiting Oxycodone/Acetaminophen (Oxycodone /Acetaminophen 5-325mg Tab) 2 tab PO Q6H PRN PRN Reason: Pain, Moderate (4-6) Physical Examination - Physical Exam Narrative exam: Physical Exam: Constitutional: Alert, cooperative. No acute distress Head, Ears, Nose: Normocephalic, atraumatic. External ears, nose normal Eyes: Conjunctivae/corneas clear. No icterus. No ptosis. Neck: Supple, no meningeal signs Oral: dentition fair, no thrush Cardiovascular: S1, S2 normal. Respiratory: Good air entry, clear to auscultation bilaterally GI: Soft, non-tender; bowel sounds normal. No peritoneal signs. +Drain Musculoskeletal: No pedal edema, no cyanosis. Skin: No rash or abscess Hem/Lymphatic: No palpable cervical or supraclavicular nodes. No lymphangitis Psych: Mood ok. Affect normal Neurological: Awake, alert, oriented. No gross abnormality - Constitutional Vitals: Vital Signs Temp Pulse Resp BP Pulse Ox 100.0 F H 102 H 27 H 126/68 100 10/06/21 07:40 10/06/21 10:15 10/06/21 10:15 10/06/21 10:15 10/06/21 10:15 Temperature -Last 24 Hours Temperature 100.0 F Temperature 98.9 F Temperature 98.1 F Temperature 98.6 F Temperature 102.7 F Temperature 98.2 F Temperature 98.2 F Results - Labs CBC & Chem 7: 10/05/21 12:04 10/05/21 12:04 Labs: Abnormal lab results 10/05/21 Range/Units 12:04 WBC 14.6 H (4.5-11.0) K/mm3 RBC 3.36 L (3.65-5.03) M/mm3 Hgb 9.1 L (10.1-14.3) gm/dl Hct 28.4 L (30.3-42.9) % MCH 27 L (28-32) pg RDW 16.4 H (13.2-15.2) % Assessment and Plan Cultures: Blood culture no growth so far A/P: 26 yo F PMHx tubo-ovarian abscess now with: #Acute sepsis; with fevers and leukocytosis. Secondary to recurrent tubo-ovarian abscess #Tubo-ovarian abscess: previous cultures with munson-sensitive E coli. Was discharged with 10 days Levaquin. Follow up cultures to see if change in jarrett contributed to recurrence. Recs: -Cotninue cefepime for now -Follow up blood and abscess cultures -Hopefully provide culture-guided recs on DC -May give home IV ABx given recurrence. Thank you for the consult, we will continue to follow. Pepper Garcia MD [facility] O: [phone] F: [phone]
[2021-10-06] MEDS: IBUPROFEN 800 MG TAB PO PRN (16:47)
[2021-10-07] MEDS: CEFEPIME/NS 2 GM/100 ML 2 GM/100 ML BAG IV SCH ×3 (04:59→23:15)
--- NOTE | 2021-10-07 07:38 | Progress Note ---
Assessment and Plan - Patient Problems (1) Tubo-ovarian abscess Current Visit: Yes Status: Acute Plan to address problem: Awaiting results of abscess culture to determine appropriate antibiotic therapy Schedule repeat CT scan on Sunday with the possibility of proceeding with a laparoscopy if the abscess has reaccumulated Potential plan of care to also include use of IV antibiotics via home health Subjective - Subjective Date of service: 10/07/21 Principal diagnosis: Tubo-Ovarain Abscess Interval history: The patient reports slight improvement in her symptoms. She states not having significant pain at the time of presentation however she was experiencing elevated temperatures. Discussed the findings of the procedure with patient. Patient reports: appetite normal, voiding normally Objective - Vital Signs Latest vital signs: Vital Signs Temp Pulse Pulse Pulse Pulse Resp Resp 10/07/21 04:32 97.3 F L 68 16 10/06/21 23:34 98.1 F 84 16 10/06/21 20:24 98.5 F 90 16 10/06/21 20:06 10/06/21 16:22 97.7 F 106 H 18 10/06/21 11:46 98.9 F 101 H 18 10/06/21 10:15 102 H 10/06/21 10:00 99 H 10/06/21 09:50 97 H 10/06/21 09:46 104 H 10/06/21 09:40 105 H 21 10/06/21 09:35 110 H 23 10/06/21 09:30 111 H 28 H 10/06/21 09:00 113 H 10/06/21 07:40 100.0 F H 111 H 22 Resp Resp BP BP BP BP Pulse Ox 10/07/21 04:32 112/74 100 10/06/21 23:34 111/68 100 10/06/21 20:24 119/76 100 10/06/21 20:06 99 10/06/21 16:22 114/69 100 10/06/21 11:46 124/78 99 10/06/21 10:15 27 H 126/68 10/06/21 10:00 14 122/76 10/06/21 09:50 30 H 123/68 10/06/21 09:46 31 H 125/64 10/06/21 09:40 123/63 10/06/21 09:35 125/64 10/06/21 09:30 125/66 10/06/21 09:00 22 120/69 10/06/21 07:40 116/61 100 Pulse Ox Pulse Ox Pulse Ox 10/07/21 04:32 10/06/21 23:34 10/06/21 20:24 10/06/21 20:06 10/06/21 16:22 10/06/21 11:46 10/06/21 10:15 100 10/06/21 10:00 100 10/06/21 09:50 100 10/06/21 09:46 10/06/21 09:40 100 10/06/21 09:35 100 10/06/21 09:30 100 10/06/21 09:00 100 10/06/21 07:40 Intake and Output 10/06/21 10/07/21 10/07/21 22:59 06:59 14:59 Intake Total 1180 340 Balance 1180 340 Intake: IV 100 CEFEPIME/NS 2 GM/100 ML 2 100 gm In 100 ml @ 200 mls/ hr IV Q8H [facility] Rx#: [id number] Oral 600 Intake, Free Water 480 340 Other: Total, Intake Amount 600 # Voids Void 1 1
[2021-10-07 08:27] LABS: Hematocrit 26.3 % (30.3-42.9); Hemoglobin 8.7 gm/dl (10.1-14.3); Mean Corpuscular HGB Conc 33 % (30-34); Mean Corpuscular Volume 84 fl (79-97); Platelet Count 447 K/mm3 (140-440); Red Blood Count 3.12 M/mm3 (3.65-5.03); Red Cell Distribution Width 16.6 % (13.2-15.2)
--- NOTE | 2021-10-07 12:08 | Cat Scan Report ---
PLEASE SEE OPERATIVE REPORT ON 10-06-21 @0947 MTDD
[2021-10-07] MEDS: IBUPROFEN 800 MG TAB PO PRN (12:15)
--- NOTE | 2021-10-07 15:15 | Progress Note ---
Assessment and Plan Cultures: Blood culture no growth so far Surgical culture GNR A/P: 26 yo F PMHx tubo-ovarian abscess now with: #Acute sepsis; with fevers and leukocytosis. Secondary to recurrent tubo-ovarian abscess #Tubo-ovarian abscess: previous cultures with munson-sensitive E coli. Was discharged with 10 days Levaquin. Follow up cultures to see if change in jarrett contributed to recurrence. Recs: -Cotninue cefepime for now -Follow up blood and abscess cultures -Hopefully provide culture-guided recs on DC -May give home IV ABx given recurrence. -pending repeat CT scan Sunday Thank you for the consult, we will continue to follow. Pepper Garcia MD [facility] ([facility]) O: [phone] F: [phone] Subjective Date of service: 10/07/21 Principal diagnosis: Tubo-Ovarain Abscess Interval history: Afebrile, white count now normalized. Surgical culture with gram-negative rods. Objective - Exam Narrative Exam: Physical Exam: Constitutional: Alert, cooperative. No acute distress Head, Ears, Nose: Normocephalic, atraumatic. External ears, nose normal Eyes: Conjunctivae/corneas clear. No icterus. No ptosis. Neck: Supple, no meningeal signs Oral: dentition fair, no thrush Cardiovascular: S1, S2 normal. Respiratory: Good air entry, clear to auscultation bilaterally GI: Soft, non-tender; bowel sounds normal. No peritoneal signs. +Drain Musculoskeletal: No pedal edema, no cyanosis. Skin: No rash or abscess Hem/Lymphatic: No palpable cervical or supraclavicular nodes. No lymphangitis Psych: Mood ok. Affect normal Neurological: Awake, alert, oriented. No gross abnormality - Constitutional Vitals: Vital Signs Temp Pulse Resp BP Pulse Ox 97.6 F 87 18 125/72 98 10/07/21 09:59 10/07/21 09:59 10/07/21 09:59 10/07/21 09:59 10/07/21 10:18 Temperature -Last 24 Hours Temperature 97.6 F Temperature 97.3 F Temperature 98.1 F Temperature 98.5 F Temperature 97.7 F - Labs CBC & Chem 7: 10/07/21 07:46 10/05/21 12:04 Labs: Abnormal lab results 10/07/21 Range/Units 07:46 RBC 3.12 L (3.65-5.03) M/mm3 Hgb 8.7 L (10.1-14.3) gm/dl Hct 26.3 L (30.3-42.9) % RDW 16.6 H (13.2-15.2) % Plt Count 447 H (140-440) K/mm3
[2021-10-08] MEDS: CEFEPIME/NS 2 GM/100 ML 2 GM/100 ML BAG IV SCH ×2 (10:55→21:33)
[2021-10-09] MEDS: CEFEPIME/NS 2 GM/100 ML 2 GM/100 ML BAG IV SCH ×8 (05:06→23:14)
[2021-10-09] MEDS: D5W/LACTATED RINGERS 1,000 ML IV SCH (10:32)
--- NOTE | 2021-10-09 21:15 | Progress Note ---
Assessment and Plan POD 1 s/p radiographic drainage of TOA. Pt doing well. Contine current plan of care. Pt has CT scan scheduled for this Sunday Subjective - Subjective Date of service: 10/09/21 Principal diagnosis: Tubo-Ovarain Abscess Interval history: Pt is s/p drainage of a recurrent TOA. Pt denies any pain today and has no sign of fever. She also denies nausea and vomiting. Patient reports: appetite normal, voiding normally, pain well controlled, ambulating normally Objective - Vital Signs Latest vital signs: Vital Signs Temp Pulse Resp Resp BP BP Pulse Ox 10/09/21 20:15 97 10/09/21 15:42 97.7 F 88 18 108/59 97 10/09/21 12:21 97.8 F 87 18 118/69 97 10/09/21 09:16 99 10/09/21 08:15 99 10/09/21 07:40 97.7 F 69 18 108/69 99 10/09/21 04:45 98.3 F 76 18 138/72 99 10/09/21 00:23 98.6 F 96 H 20 111/65 99 10/08/21 21:38 18 100 10/08/21 21:33 18 Intake and Output 10/09/21 10/09/21 10/09/21 06:59 14:59 22:59 Intake Total 100 90 840 Output Total 5 Balance 95 90 840 Intake: IV 100 CEFEPIME/NS 2 GM/100 ML 2 100 gm In 100 ml @ 200 mls/ hr IV Q8H [facility] Rx#: [id number] Oral 90 360 Intake, Free Water 480 Output: Drainage 5 Right Abdomen 5 Other: Total, Intake Amount 90 360 Total, Output Amount 5 Voiding Method Toilet # Voids Void 1 1 - Exam Lungs: Present: Clear to auscultation, Normal air movement Abdomen: Present: normal appearance, soft Extremities: Present: normal Incision: Present: normal, dry, intact, other (moderate drainage from incision in drain)
--- NOTE | 2021-10-09 21:24 | Progress Note ---
Assessment and Plan Pt doing well today, post drainage of TOA. Pt has no complaints. She will have a CT scan on tomorrow. Subjective - Subjective Date of service: 10/09/21 Principal diagnosis: Tubo-Ovarain Abscess Interval history: Pt is s/p drainage of a recurrent TOA. Pt denies any pain today and has no sign of fever. She also denies nausea and vomiting. Patient reports: appetite normal, voiding normally, pain well controlled, ambulating normally Objective - Vital Signs Latest vital signs: Vital Signs Temp Pulse Resp Resp BP BP Pulse Ox 10/09/21 20:15 97 10/09/21 20:00 98.0 F 72 20 120/70 98 10/09/21 15:42 97.7 F 88 18 108/59 97 10/09/21 12:21 97.8 F 87 18 118/69 97 10/09/21 09:16 99 10/09/21 08:15 99 10/09/21 07:40 97.7 F 69 18 108/69 99 10/09/21 04:45 98.3 F 76 18 138/72 99 10/09/21 00:23 98.6 F 96 H 20 111/65 99 10/08/21 21:38 18 100 10/08/21 21:33 18 Intake and Output 10/09/21 10/09/21 10/09/21 06:59 14:59 22:59 Intake Total 100 90 840 Output Total 5 Balance 95 90 840 Intake: IV 100 CEFEPIME/NS 2 GM/100 ML 2 100 gm In 100 ml @ 200 mls/ hr IV Q8H [facility] Rx#: [id number] Oral 90 360 Intake, Free Water 480 Output: Drainage 5 Right Abdomen 5 Other: Total, Intake Amount 90 360 Total, Output Amount 5 Voiding Method Toilet # Voids Void 1 1 - Exam Breasts: Present: deferred Lungs: Present: Clear to auscultation, Normal air movement Abdomen: Present: normal appearance, soft Extremities: Present: normal Incision: Present: normal, dry, intact
[2021-10-10] MEDS: CEFEPIME/NS 2 GM/100 ML 2 GM/100 ML BAG IV SCH (05:55)
--- NOTE | 2021-10-10 07:56 | Progress Note ---
Assessment and Plan A: Tubo-Ovarian Abscess s/p percutaneous drainage on 10/06/21 IV Cefepime, cultures indicate sensitivity P: Repeat CT scan today Monitor clinical status Subjective - Subjective Date of service: 10/10/21 Principal diagnosis: Tubo-Ovarian Abscess Interval history: Pt feels well today. She reports minimal pain. Her appetite is increasing. Patient reports: appetite normal, voiding normally, pain well controlled, ambulating normally Ola: doing well Objective - Vital Signs Latest vital signs: Vital Signs Temp Pulse Resp BP Pulse Ox 10/10/21 04:31 97.5 F L 69 20 100/55 97 10/09/21 23:53 98.1 F 73 20 125/84 98 10/09/21 22:50 98 10/09/21 20:15 97 10/09/21 20:00 98.0 F 72 20 120/70 98 10/09/21 15:42 97.7 F 88 18 108/59 97 10/09/21 12:21 97.8 F 87 18 118/69 97 10/09/21 09:16 99 10/09/21 08:15 99 Intake and Output 10/09/21 10/10/21 10/10/21 22:59 06:59 14:59 Intake Total 1300 220 120 Output Total 12 Balance 1300 208 120 Intake: IV 100 100 CEFEPIME/NS 2 GM/100 ML 2 100 100 gm In 100 ml @ 200 mls/ hr IV Q8H [facility] Rx#: [id number] Oral 360 Intake, Free Water 840 120 120 Output: Drainage 12 Right Abdomen 12 Other: Total, Intake Amount 360 Total, Output Amount 12 Voiding Method Toilet # Voids Void 1 2 1 - Exam Breasts: Present: deferred Abdomen: Present: soft
[2021-10-10 08:45] LABS: Hematocrit 29.3 % (30.3-42.9); Hemoglobin 9.3 gm/dl (10.1-14.3); Mean Corpuscular HGB Conc 32 % (30-34); Mean Corpuscular Volume 85 fl (79-97); Red Blood Count 3.44 M/mm3 (3.65-5.03)
[2021-10-10 08:46] LABS: Platelet Count 564 K/mm3 (140-440); Red Cell Distribution Width 16.4 % (13.2-15.2)
[2021-10-10 08:56] LABS: BUN/Creatinine Ratio 13; Blood Urea Nitrogen 4 mg/dL (7-17); Calcium 8.9 mg/dL (8.4-10.2); Hemolysis Index 2
--- NOTE | 2021-10-10 12:55 | Progress Note ---
Assessment and Plan Cultures: Blood culture no growth so far Surgical culture E. coli A/P: 26 yo F PMHx tubo-ovarian abscess now with: #Acute sepsis; with fevers and leukocytosis. Secondary to recurrent tubo-ovarian abscess #Tubo-ovarian abscess: previous cultures with munson-sensitive E coli. Was discharged with 10 days Levaquin. Follow up cultures to see if change in jarrett contributed to recurrence. Recs: -De-escalate to ceftriaxone based sensitivities -Continue consultive ceftriaxone 2 g every 24 hours until 10/21/2021 -Okay for midline on discharge -pending repeat CT scan today. Thank you for the consult, we will continue to follow. Pepper Garcia MD [facility] ([facility]) O: [phone] F: [phone] Subjective Date of service: 10/10/21 Principal diagnosis: Tubo-Ovarian Abscess Interval history: Afebrile normal white count. Surgical cultures with E. coli now resistant to ampicillin and cefazolin. Pending repeat CT scan Objective - Exam Narrative Exam: Physical Exam: Constitutional: Alert, cooperative. No acute distress Head, Ears, Nose: Normocephalic, atraumatic. External ears, nose normal Eyes: Conjunctivae/corneas clear. No icterus. No ptosis. Neck: Supple, no meningeal signs Oral: dentition fair, no thrush Cardiovascular: S1, S2 normal. Respiratory: Good air entry, clear to auscultation bilaterally GI: Soft, non-tender; bowel sounds normal. No peritoneal signs. +Drain Musculoskeletal: No pedal edema, no cyanosis. Skin: No rash or abscess Hem/Lymphatic: No palpable cervical or supraclavicular nodes. No lymphangitis Psych: Mood ok. Affect normal Neurological: Awake, alert, oriented. No gross abnormality - Constitutional Vitals: Vital Signs Temp Pulse Resp BP Pulse Ox 97.5 F L 79 18 125/80 97 10/10/21 07:50 10/10/21 07:50 10/10/21 07:50 10/10/21 07:50 10/10/21 07:50 Temperature -Last 24 Hours Temperature 97.5 F Temperature 97.5 F Temperature 98.1 F Temperature 98.0 F Temperature 97.7 F - Labs CBC & Chem 7: 10/10/21 08:09 10/10/21 08:09 Labs: Abnormal lab results 10/10/21 10/10/21 Range/Units 08:09 08:09 RBC 3.44 L (3.65-5.03) M/mm3 Hgb 9.3 L (10.1-14.3) gm/dl Hct 29.3 L (30.3-42.9) % MCH 27 L (28-32) pg RDW 16.4 H (13.2-15.2) % Plt Count 564 H (140-440) K/mm3 BUN 4 L (7-17) mg/dL Creatinine 0.3 L (0.6-1.2) mg/dL
--- NOTE | 2021-10-10 13:51 | Cat Scan Report ---
CT ABDOMEN AND PELVIS WITH CONTRAST HISTORY: Pelvic abscess OMNI 300 100 ML. COMPARISON: October 04, 2021 TECHNIQUE: CT images of the abdomen and pelvis were obtained following administration of intravenous contrast. All CT scans at this location are performed using CT dose reduction for ALARA by means of automated exposure control. CONTRAST: 100 ml of intravenous contrast administered. FINDINGS: Lungs/bones: Lung bases are clear Abdomen/pelvis: The liver, spleen, adrenal glands, pancreas, gallbladder and upper GI tract appear n ormal. Bilateral kidneys appear normal. Large abscess changes seen in The anterior abdomen. The large abscess collection previously identified is not as well-seen. There i s surrounding soft tissue density and inflammation surrounding the catheter tip however no large resi dual abscess collection is seen. There is no evidence of bowel obstruction. Constipation is noted. No acute bone findings IMPRESSION: 1. Drainage catheters been placed since prior examination. There is soft tissue inflammation and dens ity surrounding the catheter however the previous identified large abscess collection is not seen on today's examination. No other new findings are identified. Signer Name: Darnell Naranjo MD Signed: 10/10/2021 1:46 PM Workstation Name: [id number]
[2021-10-10] MEDS: cefTRIAXone/NS 2 GM/100 ML 2 GM/100 ML BAG IV SCH (14:35)
--- NOTE | 2021-10-11 08:13 | Progress Note ---
Assessment and Plan A: Recurrent Tubo-Ovarian Abscess s/p percutaneous drainage on 10/06/21 s/p IV Cefepime with transition to Rocephin based on cultures with need for home IV antibiotics until 10/21/21 per ID recommendations P: PICC line placement today Home health order placed Discharge home once home health in place with follow up in 1-2 days for drain removal Subjective - Subjective Date of service: 10/11/21 Principal diagnosis: Tubo-Ovarian Abscess Interval history: Pt without complaints. Drain output decreasing. Afebrile overnight. CT scan with no identifiable abscess, soft tissue inflammation surrounding drain Patient reports: appetite normal, voiding normally, pain well controlled, flatus, ambulating normally Objective - Vital Signs Latest vital signs: Vital Signs Temp Pulse Resp BP Pulse Ox 10/11/21 04:48 97.6 F 64 20 115/62 98 10/11/21 00:51 97.9 F 75 18 107/60 96 10/10/21 19:39 97.9 F 79 20 131/72 97 10/10/21 19:35 98 Intake and Output 10/10/21 10/11/21 10/11/21 22:59 06:59 14:59 Intake Total 340 240 Output Total 1 Balance 339 240 Intake: IV 100 ROCEPHIN/NS 2 GM/100 ML 2 100 gm In 100 ml @ 200 mls/ hr IV Q24H [facility] Rx#: [id number] Oral 240 Intake, Free Water 240 Output: Drainage 1 Right Abdomen 1 Other: Total, Intake Amount 240 Total, Output Amount 1 # Voids Void 1 - Exam Breasts: Present: deferred Abdomen: Present: soft, other (drain in place with minimal serosanguinous fluid ) Extremities: Absent: edema - Labs Labs: Abnormal lab results 10/10/21 10/10/21 Range/Units 08:09 08:09 RBC 3.44 L (3.65-5.03) M/mm3 Hgb 9.3 L (10.1-14.3) gm/dl Hct 29.3 L (30.3-42.9) % MCH 27 L (28-32) pg RDW 16.4 H (13.2-15.2) % Plt Count 564 H (140-440) K/mm3 BUN 4 L (7-17) mg/dL Creatinine 0.3 L (0.6-1.2) mg/dL
--- NOTE | 2021-10-11 13:24 | Progress Note ---
Assessment and Plan Cultures: Blood culture no growth so far Surgical culture E. coli A/P: 26 yo F PMHx tubo-ovarian abscess now with: #Acute sepsis; with fevers and leukocytosis. Secondary to recurrent tubo-ovarian abscess #Tubo-ovarian abscess: previous cultures with munson-sensitive E coli. Was discharged with 10 days Levaquin. Follow up cultures to see if change in jarrett contributed to recurrence. Recs: -De-escalate to ceftriaxone based sensitivities -Continue consultive ceftriaxone 2 g every 24 hours until 10/21/2021 -Okay for midline/PICC on discharge -pending repeat CT scan today. Discussed with Dr. Bae Thank you for the consult, we will continue to follow. Pepper Garcia MD [facility] ([facility]) O: [phone] F: [phone] Subjective Date of service: 10/11/21 Principal diagnosis: Tubo-Ovarian Abscess Interval history: Afebrile, normal white count. Imaging personally reviewed: CT abdomen pelvis: Abscess is resolved, ongoing soft tissue inflammation. Objective - Exam Narrative Exam: Physical Exam: Constitutional: Alert, cooperative. No acute distress Head, Ears, Nose: Normocephalic, atraumatic. External ears, nose normal Eyes: Conjunctivae/corneas clear. No icterus. No ptosis. Neck: Supple, no meningeal signs Oral: dentition fair, no thrush Cardiovascular: S1, S2 normal. Respiratory: Good air entry, clear to auscultation bilaterally GI: Soft, non-tender; bowel sounds normal. No peritoneal signs. +Drain Musculoskeletal: No pedal edema, no cyanosis. Skin: No rash or abscess Hem/Lymphatic: No palpable cervical or supraclavicular nodes. No lymphangitis Psych: Mood ok. Affect normal Neurological: Awake, alert, oriented. No gross abnormality - Constitutional Vitals: Vital Signs Temp Pulse Resp BP Pulse Ox 97.5 F L 66 18 117/71 98 10/11/21 07:53 10/11/21 07:53 10/11/21 07:53 10/11/21 07:53 10/11/21 08:30 Temperature -Last 24 Hours Temperature 97.5 F Temperature 97.6 F Temperature 97.9 F Temperature 97.9 F - Labs CBC & Chem 7: 10/10/21 08:09 10/10/21 08:09
[2021-10-11] MEDS: cefTRIAXone/NS 2 GM/100 ML 2 GM/100 ML BAG IV SCH (13:41)
--- NOTE | 2021-10-11 13:46 | Event Note ---
Date: 10/11/21 ( ) Pt's RN called control systems eng physician with update. The patient has received her PICC line and social work is aware of need for home IV antibiotics and is getting the necessary orders. Plan for home health to call the patient to ensure appt for tomorrow. Once secured, pt may be discharge home with follow up on 10/13/21.
--- NOTE | 2021-10-11 13:47 | Discharge Summary ---
Providers - Providers Date of Admission: 10/04/21 21:35 Date of discharge: 10/11/21 Attending physician: TRAVIS BANGURA 10/06/21 08:23 Consult to Physician [CONS] Routine Comment: Consulting Provider: AMBROSIO NICOLE Physician Instructions: Reason For Exam: Recurrence of TOA 10/10/21 12:54 Consult to Case Management [CONS] Routine Services Needed at Discharge: Home Health Services Notified:: Case Management Phone number called:: [phone] Was contact made?: Yes Time called:: 08:45 Additional Physician Instructions: MD Kann[facility] ([facility]) M: [phone] O: [phone] F: [phone] Outpatient parenteral antibiotic therapy orders Diagnosis: Tubo-ovarian abscess Antibiotic administration: ceftriaxone 2 g every 24 hours until 10/21/2021 Line: Midline Lab monitoring: CBC with differential, BUN, creatinine, LFTs, CRP once per week preferably on Sunday or Sunday For critical labs, call office: [phone] Pepper Garcia 10/11/21 07:00 Consult to PICC Line RN [CONS] Urgent Reason For Exam: Pt needs IV antibiotics until 10/21/21 for TOA Type Line:: PICC Primary care physician: BALLOON PILOT Hospitalization Reason for admission: other (tubo-ovarian abscess ) Procedure details: Percutaneous drainage of tubo-ovarian abscess on 10/06/21 IV Antibiotic administration Incision: other (drain site intact ) Discharge diagnosis: other (Tubo-ovarain abscess) Hospital course: Pt was admitted with recurrence of tubo-ovarian abscess. She underwent percutaneous drainage and Infectious disease consult with recommendation for IV antibiotics at home. She also had repeat CT scan which showed resolution of abscess and soft tissue inflammation prior to discharge. PICC line was placed, and home health consulted to aid in home antibiotic administration. Pt has an upcoming appt in the office for drain removal on 10/13/21. Condition at discharge: Stable Disposition: 01 HOME / SELF CARE / HOMELESS - Discharge Diagnoses (1) Acute febrile illness Status: Acute (2) Lower abdominal pain Status: Acute (3) Tubo-ovarian abscess Status: Acute Plan - Provider Discharge Summary Activity: no sex for 6 weeks, no heavy lifting 4 weeks, no strenuous exercise Diet: routine Additional instructions: [] Smoking cessation referral if applicable(refer to patient education folder for contact #) [] Refer to [facility] Booklet Call your doctor immediately for: * Fever > 100.5 * Heavy vaginal bleeding ( >1 pad per hour) * Severe persistent headache * Shortness of breath * Reddened, hot, painful area to leg or breast * Drainage or odor from incision. * Keep incision clean and dry at all times and follow doctor's instructions regarding bathing/showering - Follow up plan Follow up: PRIMARY CAREMD [Primary Care Provider] - 7 Days CATHERINE HOWELL MD [Staff Physician] - 10/13/21 (Appt for drain removal ) Forms: [facility] Discharge Summary
[2021-10-11 14:33] VITALS: BP 112/72
== END 2021-10-11 14:32 | disposition home health service (06) | DRG 872 ==
LOC: ED 17:29 → OB 21:35
PROVIDERS: ADMIT Obstetrics & Gynecology; ATTEND Obstetrics & Gynecology
PROC: 0W9J3ZZ Drainage of Pelvic Cavity, Percutaneous Approach (ICD-10-PCS; principal; 2021-10-06)
PROC: 02HV33Z Insertion of Infusion Device into Superior Vena Cava, Percutaneous Approach (ICD-10-PCS; 2021-10-11)
DX: A41.9 Sepsis, unspecified organism (principal); N70.93 Salpingitis and oophoritis, unspecified; F17.200 Nicotine dependence, unspecified, uncomplicated; E87.6 Hypokalemia; Z88.8 Allergy status to other drugs, medicaments and biological substances; Z82.49 Family history of ischemic heart disease and other diseases of the circulatory system
CPT/HCPCS: 10160; 36415; 74177; 74178; 77012; 80048; 80053; 81001; 82140; 84132; 84703; 85025; 85027; 87040; 87076; 87116; 87186; 94760; G0378; J7060; C1769; J0692; J0696; J2250; J3010; J3480; J7040; J7120; J7121; Q9967